=== PATIENT | female | born 1960 | race Caucasian/White ===

== ENCOUNTER 2022-10-29 17:26 | Inpatient (IN) ==
[2022-10-29] MEDS ORDERED: HYDROmorphone INJ 0.5 MG/0.5 ML SYR IV PRN (17:39)
[2022-10-29 17:46] LABS: Basophils # (auto) 0.08 K/uL (0-0.2); Basophils % (auto) 0.8 %; Eosinophils # (auto) 0.41 K/uL (0-0.50); Eosinophils % (auto) 4.3 %; Hematocrit (blood only) 44.4 % (37.0-47.0); Hemoglobin 14.5 g/dl (12.0-16.0); Immature Granulocytes # (auto) 0.03 K/uL (0.01-0.20); Immature Granulocytes % (auto) 0.3 %; Lymphocytes # (auto) 2.43 K/uL (1.2-3.4); Lymphocytes % (auto) 25.3 %; Mean Corpuscular Hemoglobin 28.2 pg (25.0-34.0); Mean Corpuscular Hgb Conc 32.7 g/dL (32.0-36.0); Mean Corpuscular Volume 86.4 fL (80.0-100.0); Monocytes # (auto) 0.62 K/uL (0.11-0.59); Monocytes % (auto) 6.5 %; Neutrophils # (auto) 6.04 K/uL (1.40-6.50); Neutrophils % (auto) 62.8 %; Platelet Count 273 K/uL (130-400); RDW Coefficient of Variation 13.1 % (11.5-14.5); RDW Standard Deviation 40.8 fL (36.4-46.3); Red Blood Count 5.14 M/uL (4.20-5.40); White Blood Count 9.61 K/ul (4.8-10.8)
--- NOTE | 2022-10-29 17:48 | Emergency Department Note ---
Impression & Plan Acute ST elevation myocardial infarction (STEMI) ED Provider Note INFORMANT: Patient and EMS ED PROVIDER(S): Sherwin Schwarz MD CHIEF COMPLAINT: Chest pain PLAN: Disposition: Admitted Condition: Critical Outpatient prescription management: none Referral: None MEDICAL DECISION MAKING: Patient presented acutely with chest pain. ECG had some T wave inversions from the prehospital setting however ECG done here promptly on arrival revealed acute ST elevation in the inferior leads. Heart alert was initiated. Patient was promptly evaluated and treated with IV Dilaudid and oral nitroglycerin. She did receive aspirin and nitroglycerin prehospital. She was feeling somewhat better with this. Her CBC and chemistry panel was unremarkable except for hyperglycemia, however the patient was found to have a markedly elevated troponin. Chest x-ray did show some cardiomegaly and signs of CHF. Patient was evaluated by Dr. Gordon of cardiology. We discussed the case and he agreed with assessment of acute ST elevation PR. He discussed treatment with the patient and she was taken emergently to the catheterization suite for PCI. I refer you to the EMR for further details. [facility]. Case was discussed and diagnostics were reviewed. Team will see the patient after catheterization. Discussed with resource manager After review of the information above and other included data, I feel the patient requires admission and emergent catheterization. Triage Nursing notes reviewed and agree them. Vital Signs: reviewed and remarkable for no significant abnormalities Prior /Outside records reviewed: none Differential diagnosis: Cardiac ischemia, aortic dissection, pulmonary embolism, pneumothorax, pneumonia, pericarditis, myocarditis, esophageal rupture, GERD, cholecystitis, pancreatitis, musculoskeletal, as well as other pathologies. Diagnostics, as interpreted by me: EC Lead ECG performed and revealed NS rhythym at 84, normal Jerome, QRS normal. Inferior ST ELEVATION with lateral TWI. PACs. No PVCs Cardiac Monitoring: Cardiac monitoring ordered by me: The patient was placed on continuous cardiac monitoring and observed. It revealed a normal sinus rhythm at 90 beats per minute without ectopy or evidence of dysrhythmia. Medical decision rules: none Imaging studies: Chest x-ray reveals mild cardiomegaly and signs of CHF. HPI: The patient is a 62 year old female who presents to the Emergency Room with complaints of chest pain. This started over the last week intermittently, got severe today at 1530 and is persisting. The patient also notes the following associated symptoms, SOB, diaphoresis, nausea, back pain, bilateral arm pain. The patient has been given Nitro x 2, zofran and aspirin by EMS for relieving f actors. Current pain is rated as 7/10. Nitro and zofran helped per patient. No prior cardiac history. Pt denies LOC, headache, fevers, chills, visual changes, neck pain, chest pain, breathing difficulties, vomiting, abdominal pain, melena, hematochezia, urinary symptoms, numbness, weakness, lymp hadenopathy, rash, or other complaints. PAST MEDICAL HISTORY: See Below, HTN, DM PAST SURGICAL HISTORY: See Below, SOCIAL HISTORY: See Below, non-smoker HOME MEDICATIONS: See Below ALLERGIES: See Below VITALS: See Below PHYSICAL EXAMINATION: GENERAL: Awake, alert, uncomfortable-appearing, in no distress HENT: Normocephalic, atraumatic. Oropharynx unremarkable. EYES: Normal conjunctiva. Sclera non-icteric. NECK: Inspection normal. Non-tender. Supple. No nuchal rigidity. FROM. No masses. RESPIRATORY: Clear to auscultation. No wheezes. No rales. Normal respiratory effort. CARDIAC: Normal rate. Normal rhythm. No murmurs. No rubs. Extremities warm and well perfused. Pulses equal. No JVD. GI: Soft, non-distended. No tenderness to palpation. No rebound or guarding. No masses. RECTAL: Deferred. MUSCULOSKELETAL: Atraumatic. Chest examination reveals no tenderness. The back is symmetrical on inspection without obvious abnormality. There is no CVA tenderness to palpation. No joint edema. LOWER EXTREMITIES: Calves are equal size bilaterally and non-tender. No edema. Chronic discoloration. NEURO: Normal sensorium. No sensory or motor deficits noted. SKIN: No rash or jaundice noted. CRITICAL CARE: I have personally spent 31 minutes of critical care time in the direct management of this patient. This includes bedside care, interpretation of diagnostic studies, and testing, discussion with consultants, patient, and other required patient management activities. These minutes are in excess of all separately billable procedures. Past Med/Surg History Medical History (Updated 10/29/22 @ 21:59 by SNOW Hood) Benign essential HTN DM II (diabetes mellitus, type II), controlled HLD (hyperlipidemia) Obesity (BMI 30.0-34.9) Surgical History (Updated 10/29/22 @ 18:10 by Liseth Sanchez PA-C) History of kidney surgery Perinephritic mass excised Hx of cataract surgery Hx of hysterectomy Family History (Updated 10/29/22 @ 18:10 by Liseth Sanchez PA-C) Father Heart disease Cancer Mother Diabetes Sister Heart disease Social History (Updated 10/29/22 @ 18:11 by Liseth Sanchez PA-C) Smoking Status: Never smoker Hx Alcohol Use: No Hx Substance Use: No Preferred Language: Guatemalan Communication Ability: Effective Band Presser Required: No Beliefs That Will Affect Care: None Current Living Situation: Family Current Living Situation Comment: patient lives with her mother, and acts as her mother's caregiver Other Information That Helps Us Care for You: No Feels Safe at Home: Yes Safety Concerns: Feels Safe At This Time Assistive Devices: Glasses Allergies Allergies Allergy/AdvReac Type Severity Reaction Status Date / Time ceftriaxone Allergy Severe EDEMA Verified 10/29/22 17:49 FACE/LIPS/TONGUE levofloxacin Allergy Severe OLIVAREZ Verified 10/29/22 17:49 ROHIT REACTION AT END OF THERAPY. amoxicillin Allergy Intermediate eyes swell Verified 10/29/22 17:49 shut clavulanic acid Allergy Intermediate EYES SWELL Verified 10/29/22 17:49 SHUT latex Allergy Intermediate SKIN Verified 10/29/22 17:49 REDDENED, IRRITATION minocycline Allergy Intermediate HEADACHE/EYES Verified 10/29/22 17:49 PUFFY naproxen Allergy Intermediate hives Verified 10/29/22 17:49 pollen extracts Allergy Intermediate SNEEZING, Verified 10/29/22 17:49 CONGESTION Sulfa (Sulfonamide Allergy Intermediate HIVES/SWELL Verified 10/29/22 17:49 Antibiotics) ING metformin Allergy Unknown upset Verified 10/29/22 17:49 stomach, diarrhea nickel Allergy Unknown UNKNOWN Verified 10/29/22 17:49 bupropion [From Wellbutrin] AdvReac Intermediate FELT LIKE Verified 10/29/22 17:49 PASSING OUT simvastatin AdvReac Intermediate Muscle Pain Verified 10/29/22 17:49 erythromycin base AdvReac Unknown unknown Verified 10/29/22 17:49 valsartan AdvReac FATIGUE Verified 10/29/22 17:49 peanuts Allergy Severe EDEMA Uncoded 10/29/22 17:49 FACE/LIPS/TONGUE INFLUENZA VACCINE Allergy Intermediate not Uncoded 10/29/22 17:49 absorbed into system leaves reddened ball sized area corn&corn products AdvReac Severe migraines Uncoded 10/29/22 17:49 Home Meds Home Medications Medication Instructions Recorded Confirmed albuterol sulfate 90 mcg/actuation 2 puff inhalation Q6H PRN Cough 10/29/22 10/29/22 aerosol inhaler ascorbic acid (vitamin C) 500 mg 500 mg PO DAILY 10/29/22 10/29/22 tablet (Vitamin C) aspirin 81 mg tablet,delayed 81 mg PO DAILY 10/29/22 10/29/22 release cholecalciferol (vitamin D3) 125 125 mcg PO DAILY 10/29/22 10/29/22 mcg (5,000 unit) tablet (Vitamin D3) cyclobenzaprine 10 mg tablet 10 mg PO HS PRN MUSCLE SPASMS 10/29/22 10/29/22 dulaglutide 4.5 mg/0.5 mL 4.5 mg subcut WK 10/29/22 10/29/22 subcutaneous pen injector (Trulicity) furosemide 20 mg tablet 20 mg PO QAM 10/29/22 10/29/22 insulin detemir U-100 100 unit/mL 12 unit subcut HS 10/29/22 10/29/22 (3 mL) subcutaneous pen (Levemir FlexPen) loratadine 5 mg-pseudoephedrine ER 1 tab PO QAM 10/29/22 10/29/22 120 mg tablet,extended release,12hr (Claritin-D 12 Hour) losartan 100 mg tablet 100 mg PO QAM 10/29/22 10/29/22 propranolol 60 mg tablet 60 mg PO BID 10/29/22 10/29/22 sertraline 100 mg tablet 100 mg PO QAM 10/29/22 10/29/22 triamcinolone acetonide 0.1 % 1 applic topical BID PRN RASH ON 10/29/22 10/29/22 topical cream ARMS & LEGS--ITCHING Results & Data (ED) Vital Signs Vital Signs - 24 hr 10/29/22 17:37 10/29/22 17:40 10/29/22 17:47 Temperature 36.5 C Temperature Source Oral Pulse Rate 94 H 90 Pulse Rate [Apical] Pulse Rhythm Regular Pulse Rhythm [Apical] Pulse Strength Normal Pulse Strength [Apical] Respiratory Rate 22 Respiratory Effort / Characteristics Non-Labored Spontaneous Respiratory Depth Normal Respiratory Pattern Blood Pressure 137/100 Blood Pressure [Right Arm] Blood Pressure Mean 112 Blood Pressure Mean [Right Arm] Blood Pressure Position Sitting Blood Pressure Position [Right Arm] Pulse Oximetry 90 Oxygen Delivery Method Room Air Room Air Oxygen Flow Rate 2 2 Fraction of Inspired Oxygen Sepsis Recent Fever Within 48 Hours No Sepsis New/Unexplained Change in Mental Status No Sepsis Action Taken by Nursing No Action Required 10/29/22 17:47 10/29/22 18:53 10/29/22 19:08 Temperature Temperature Source Pulse Rate Pulse Rate [Apical] 78 Pulse Rhythm Pulse Rhythm [Apical] Regular Pulse Strength Pulse Strength [Apical] Normal Respiratory Rate 22 14 14 Respiratory Effort / Characteristics Non-Labored Spontaneous Non-Labored Spontaneous Non-Labored Spontaneous Respiratory Depth Normal Normal Normal Respiratory Pattern Regular Blood Pressure Blood Pressure [Right Arm] 131/96 Blood Pressure Mean Blood Pressure Mean [Right Arm] 107 Blood Pressure Position Blood Pressure Position [Right Arm] Sitting Pulse Oximetry 96 98 Oxygen Delivery Method Nasal Cannula Oxygen Flow Rate 2 Fraction of Inspired Oxygen 100 40 Sepsis Recent Fever Within 48 Hours Sepsis New/Unexplained Change in Mental Status Sepsis Action Taken by Nursing Laboratory Data 10/29/22 17:36 10/29/22 17:36 Lab Results 10/29/22 10/29/22 10/29/22 Range/Units 17:36 17:36 17:36 WBC 9.61 (4.8-10.8) K/ul RBC 5.14 (4.20-5.40) M/uL Hgb 14.5 (12.0-16.0) g/dl POC Hgb (12.0-16.0) g/dl Hct 44.4 (37.0-47.0) % POC Hct (37-47) % MCV 86.4 (80.0-100.0) fL MCH 28.2 (25.0-34.0) pg MCHC 32.7 (32.0-36.0) g/dL RDW Std Deviation 40.8 (36.4-46.3) fL RDW Coeff of Moni 13.1 (11.5-14.5) % Plt Count 273 (130-400) K/uL MPV 11.0 (9.4-12.4) fL Immature Gran % (Auto) 0.3 % Neut % (Auto) 62.8 % Lymph % (Auto) 25.3 % [place] % (Auto) 6.5 % Eos % (Auto) 4.3 % Baso % (Auto) 0.8 % Neut # (Auto) 6.04 (1.40-6.50) K/uL Lymph # (Auto) 2.43 (1.2-3.4) K/uL [place] # (Auto) 0.62 H (0.11-0.59) K/uL Eos # (Auto) 0.41 (0-0.50) K/uL Baso # (Auto) 0.08 (0-0.2) K/uL Immature Gran # (Auto) 0.03 (0.01-0.20) K/uL PT 11.2 (9.0-12.0) Seconds INR 1.0 (0.9-1.1) APTT 27.6 (21.0-31.0) Seconds PTT Ratio 1.0 Activ Coag Time Kaolin (94-140) SECONDS POC pH (7.35-7.45) POC pCO2 (35-46) mmHg POC pO2 (80-95) mmHg POC HCO3 (19-24) [place]/L POC Base Excess (-9-1.8) [place]/L POC ABG O2 Sat (90-95) % POC Sodium (135-144) mmol/L Sodium 137 (136-145) mmol/L POC Potassium (3.3-5.0) mmol/L Potassium 4.7 (3.5-5.1) mmol/L POC Chloride (101-112) mmol/L Chloride 102 (98-107) mmol/L Carbon Dioxide 28 (21-32) mmol/L POC Total CO2 (24-31) mmol/L Anion Gap 7 (3-11) POC Anion Gap (16-25) mmol/L POC BUN (7-18) mg/dl BUN 20 (6-23) mg/dl Creatinine 0.93 (0.6-1.2) mg/dl POC Creatinine (0.6-1.3) mg/dl Est Cr Clr Drug Dosing 70.6 ml/min Est GFR ( Amer) 75.8 ml/min Est GFR (Non-Af Amer) 65.4 ml/min BUN/Creatinine Ratio 21.5 H (10-20) Glucose 287 H (70-99(Fasting)) mg/dl POC Glucose (other) (70-99) mg/dl Calcium 8.9 (8.6-10.3) mg/dl POC Ioniz Calcium Sathish (1.12-1.32) mmol/l Magnesium 1.9 (1.7-2.4) mg/dl Total Bilirubin 0.7 (0.2-1.0) mg/dl AST 38 (13-39) U/L ALT 45 (7-52) U/L Alkaline Phosphatase 87 (34-104) U/L Total Creatine Kinase 113 (26-192) U/L Troponin I High Sens 1446.4 H* (0-14) pg/ml B-Natriuretic Peptide (0-100) pg/ml Total Protein 6.9 (6.0-8.3) gm/dl Albumin 4.2 (3.4-5.0) gm/dl Globulin 2.7 (2.5-4.0) gm/dl Albumin/Globulin Ratio 1.6 (0.9-2) Lipase 52 (11-82) U/L TSH (0.300-4.500) uIu/ml SARS-CoV-2, RNA, NAAT (NEGATIVE) 10/29/22 10/29/22 10/29/22 Range/Units 17:36 17:40 17:47 WBC (4.8-10.8) K/ul RBC (4.20-5.40) M/uL Hgb (12.0-16.0) g/dl POC Hgb (12.0-16.0) g/dl Hct (37.0-47.0) % POC Hct (37-47) % MCV (80.0-100.0) fL MCH (25.0-34.0) pg MCHC (32.0-36.0) g/dL RDW Std Deviation (36.4-46.3) fL RDW Coeff of Moni (11.5-14.5) % Plt Count (130-400) K/uL MPV (9.4-12.4) fL Immature Gran % (Auto) % Neut % (Auto) % Lymph % (Auto) % [place] % (Auto) % Eos % (Auto) % Baso % (Auto) % Neut # (Auto) (1.40-6.50) K/uL Lymph # (Auto) (1.2-3.4) K/uL [place] # (Auto) (0.11-0.59) K/uL Eos # (Auto) (0-0.50) K/uL Baso # (Auto) (0-0.2) K/uL Immature Gran # (Auto) (0.01-0.20) K/uL PT (9.0-12.0) Seconds INR (0.9-1.1) APTT (21.0-31.0) Seconds PTT Ratio Activ Coag Time Kaolin (94-140) SECONDS POC pH (7.35-7.45) POC pCO2 (35-46) mmHg POC pO2 (80-95) mmHg POC HCO3 (19-24) [place]ul[place]/L POC Base Excess (-9-1.8) [place]/L POC ABG O2 Sat (90-95) % POC Sodium (135-144) mmol/L Sodium (136-145) mmol/L POC Potassium (3.3-5.0) mmol/L Potassium (3.5-5.1) mmol/L POC Chloride (101-112) mmol/L Chloride (98-107) mmol/L Carbon Dioxide (21-32) mmol/L POC Total CO2 (24-31) mmol/L Anion Gap (3-11) POC Anion Gap (16-25) mmol/L POC BUN (7-18) mg/dl BUN (6-23) mg/dl Creatinine (0.6-1.2) mg/dl POC Creatinine (0.6-1.3) mg/dl Est Cr Clr Drug Dosing ml/min Est GFR ( Amer) ml/min Est GFR (Non-Af Amer) ml/min BUN/Creatinine Ratio (10-20) Glucose (70-99(Fasting)) mg/dl POC Glucose (other) (70-99) mg/dl Calcium (8.6-10.3) mg/dl POC Ioniz Calcium Sathish (1.12-1.32) mmol/l Magnesium (1.7-2.4) mg/dl Total Bilirubin (0.2-1.0) mg/dl AST (13-39) U/L ALT (7-52) U/L Alkaline Phosphatase (34-104) U/L Total Creatine Kinase (26-192) U/L Troponin I High Sens (0-14) pg/ml B-Natriuretic Peptide 1195 H (0-100) pg/ml Total Protein (6.0-8.3) gm/dl Albumin (3.4-5.0) gm/dl Globulin (2.5-4.0) gm/dl Albumin/Globulin Ratio (0.9-2) Lipase (11-82) U/L TSH 3.155 (0.300-4.500) uIu/ml SARS-CoV-2, RNA, NAAT NEGATIVE (NEGATIVE) 10/29/22 10/29/22 10/29/22 Range/Units 17:53 18:33 18:34 WBC (4.8-10.8) K/ul RBC (4.20-5.40) M/uL Hgb (12.0-16.0) g/dl POC Hgb 15.0 13.9 (12.0-16.0) g/dl Hct (37.0-47.0) % POC Hct 44 41 (37-47) % MCV (80.0-100.0) fL MCH (25.0-34.0) pg MCHC (32.0-36.0) g/dL RDW Std Deviation (36.4-46.3) fL RDW Coeff of Moni (11.5-14.5) % Plt Count (130-400) K/uL MPV (9.4-12.4) fL Immature Gran % (Auto) % Neut % (Auto) % Lymph % (Auto) % [place] % (Auto) % Eos % (Auto) % Baso % (Auto) % Neut # (Auto) (1.40-6.50) K/uL Lymph # (Auto) (1.2-3.4) K/uL [place] # (Auto) (0.11-0.59) K/uL Eos # (Auto) (0-0.50) K/uL Baso # (Auto) (0-0.2) K/uL Immature Gran # (Auto) (0.01-0.20) K/uL PT (9.0-12.0) Seconds INR (0.9-1.1) APTT (21.0-31.0) Seconds PTT Ratio Activ Coag Time Kaolin 257 H (94-140) SECONDS POC pH 7.15 L* (7.35-7.45) POC pCO2 73 H (35-46) mmHg POC pO2 99 H (80-95) mmHg POC HCO3 25 H (19-24) [place]ul[place]/L POC Base Excess -4.0 (-9-1.8) [place]/L POC ABG O2 Sat 95.0 (90-95) % POC Sodium 138 128 L (135-144) mmol/L Sodium (136-145) mmol/L POC Potassium 4.4 4.1 (3.3-5.0) mmol/L Potassium (3.5-5.1) mmol/L POC Chloride 103 (101-112) mmol/L Chloride (98-107) mmol/L Carbon Dioxide (21-32) mmol/L POC Total CO2 23 L 27 (24-31) mmol/L Anion Gap (3-11) POC Anion Gap 18.0 (16-25) mmol/L POC BUN 20 H (7-18) mg/dl BUN (6-23) mg/dl Creatinine (0.6-1.2) mg/dl POC Creatinine 0.9 (0.6-1.3) mg/dl Est Cr Clr Drug Dosing ml/min Est GFR ( Amer) ml/min Est GFR (Non-Af Amer) ml/min BUN/Creatinine Ratio (10-20) Glucose (70-99(Fasting)) mg/dl POC Glucose (other) 286 H (70-99) mg/dl Calcium (8.6-10.3) mg/dl POC Ioniz Calcium Sathish 1.08 L (1.12-1.32) mmol/l Magnesium (1.7-2.4) mg/dl Total Bilirubin (0.2-1.0) mg/dl AST (13-39) U/L ALT (7-52) U/L Alkaline Phosphatase (34-104) U/L Total Creatine Kinase (26-192) U/L Troponin I High Sens (0-14) pg/ml B-Natriuretic Peptide (0-100) pg/ml Total Protein (6.0-8.3) gm/dl Albumin (3.4-5.0) gm/dl Globulin (2.5-4.0) gm/dl Albumin/Globulin Ratio (0.9-2) Lipase (11-82) U/L TSH (0.300-4.500) uIu/ml SARS-CoV-2, RNA, NAAT (NEGATIVE) 10/29/22 10/29/22 Range/Units 19:03 19:05 WBC (4.8-10.8) K/ul RBC (4.20-5.40) M/uL Hgb (12.0-16.0) g/dl POC Hgb 15.0 13.9 (12.0-16.0) g/dl Hct (37.0-47.0) % POC Hct 44 41 (37-47) % MCV (80.0-100.0) fL MCH (25.0-34.0) pg MCHC (32.0-36.0) g/dL RDW Std Deviation (36.4-46.3) fL RDW Coeff of Moni (11.5-14.5) % Plt Count (130-400) K/uL MPV (9.4-12.4) fL Immature Gran % (Auto) % Neut % (Auto) % Lymph % (Auto) % [place] % (Auto) % Eos % (Auto) % Baso % (Auto) % Neut # (Auto) (1.40-6.50) K/uL Lymph # (Auto) (1.2-3.4) K/uL [place] # (Auto) (0.11-0.59) K/uL Eos # (Auto) (0-0.50) K/uL Baso # (Auto) (0-0.2) K/uL Immature Gran # (Auto) (0.01-0.20) K/uL PT (9.0-12.0) Seconds INR (0.9-1.1) APTT (21.0-31.0) Seconds PTT Ratio Activ Coag Time Kaolin (94-140) SECONDS POC pH 7.26 L 7.29 L (7.35-7.45) POC pCO2 65 H 55 H (35-46) mmHg POC pO2 38 L 176 H (80-95) mmHg POC HCO3 29 H 27 H (19-24) [place]/L POC Base Excess 2.0 H 0.0 (-9-1.8) [place]/L POC ABG O2 Sat 61.0 L 99.0 H (90-95) % POC Sodium 138 140 (135-144) mmol/L Sodium (136-145) mmol/L POC Potassium 4.2 3.8 (3.3-5.0) mmol/L Potassium (3.5-5.1) mmol/L POC Chloride (101-112) mmol/L Chloride (98-107) mmol/L Carbon Dioxide (21-32) mmol/L POC Total CO2 31 28 (24-31) mmol/L Anion Gap (3-11) POC Anion Gap (16-25) mmol/L POC BUN (7-18) mg/dl BUN (6-23) mg/dl Creatinine (0.6-1.2) mg/dl POC Creatinine (0.6-1.3) mg/dl Est Cr Clr Drug Dosing ml/min Est GFR ( Amer) ml/min Est GFR (Non-Af Amer) ml/min BUN/Creatinine Ratio (10-20) Glucose (70-99(Fasting)) mg/dl POC Glucose (other) (70-99) mg/dl Calcium (8.6-10.3) mg/dl POC Ioniz Calcium Sathish (1.12-1.32) mmol/l Magnesium (1.7-2.4) mg/dl Total Bilirubin (0.2-1.0) mg/dl AST (13-39) U/L ALT (7-52) U/L Alkaline Phosphatase (34-104) U/L Total Creatine Kinase (26-192) U/L Troponin I High Sens (0-14) pg/ml B-Natriuretic Peptide (0-100) pg/ml Total Protein (6.0-8.3) gm/dl Albumin (3.4-5.0) gm/dl Globulin (2.5-4.0) gm/dl Albumin/Globulin Ratio (0.9-2) Lipase (11-82) U/L TSH (0.300-4.500) uIu/ml SARS-CoV-2, RNA, NAAT (NEGATIVE) Administered Medications Hydromorphone HCl (Hydromorphone Inj 0.5 Mg/0.5 Ml Syr) 0.25 mg IV Q10M PRN PRN Reason: Pain Stop: 11/12/22 17:38 Last Admin: 10/29/22 17:44 Dose: 0.25 mg Documented By: PRASANNA Insulin Aspart (Insulin Aspart Per Unit Charge) 0 units SC ACHS [facility] Stop: 11/28/22 20:59 Last Admin: 10/29/22 21:39 Dose: 3 units Documented By: PADMA Co-signed By: LEONA Insulin Glargine (Lantus Per Unit Charge) 12 units SQ HS [facility] Stop: 11/28/22 20:59 Last Admin: 10/29/22 21:39 Dose: 12 units Documented By: PADMA Co-signed By: LEONA Metoprolol Tartrate (Metoprolol Tartrate 25 Mg Tab) 12.5 mg PO BID [facility] Stop: 11/28/22 20:59 Last Admin: 10/29/22 21:49 Dose: 12.5 mg Documented By: PADMA Discontinued Medications Fentanyl Citrate (Fentanyl Citrate Pf 100 Mcg/2 Ml Vial) Confirm Administered Dose 100 mcg .ROUTE .STK-MED ONE Stop: 10/29/22 17:54 Last Increment: 10/29/22 18:57 Dose: 25 mcg Documented By: DANILO Furosemide (Furosemide 40 Mg/4 Ml Vial) Confirm Administered Dose 40 mg IV .STK- MED ONE Stop: 10/29/22 18:22 Last Admin: 10/29/22 18:57 Dose: 40 mg Documented By: DANILO Heparin Sodium (Porcine) (Heparin (Porcine) 1000 Unit/Ml 10 Ml (Aut[employer] Use Only)) Confirm Administered Dose 10,000 units .ROUTE .STK-MED ONE Stop: 10/29/22 17:54 Last Admin: 10/29/22 18:56 Dose: 8,000 units Documented By: DANILO Heparin Sodium/Sodium Chloride (Heparin In Nss Infusion 1000 Unit/500 Ml (2 U/Ml) Bag) Confirm Administered Dose 4,000 units IV .STK-MED ONE Stop: 10/29/22 17:54 Last Admin: 10/29/22 20:26 Dose: Not Given Documented By: PADMA Midazolam HCl (Midazolam Hcl 1 Mg/Ml 2ml Vial) Confirm Administered Dose 2 mg .ROUTE .STK-MED ONE Stop: 10/29/22 17:54 Last Increment: 10/29/22 18:57 Dose: 1 mg Documented By: DANILO Nicardipine HCl (Nicardipine Hcl Inj 2.5 Mg/Ml 10 Ml Amp) Confirm Administered Dose 25 mg .ROUTE .STK-MED ONE Stop: 10/29/22 17:54 Last Admin: 10/29/22 20:27 Dose: Not Given Documented By: DLP Nitroglycerin (Nitroglycerin Sl 0.4 Mg/Tab Tab) 0.4 mg SL NOW STA Stop: 10/29/22 17:50 Last Admin: 10/29/22 20:25 Dose: Not Given Documented By: DLP Nitroglycerin (Nitroglycerin 60 Sprays/4.9 Gm [place]) Confirm Administered Dose 60 sprays .ROUTE .STK-MED ONE Stop: 10/29/22 17:51 Last Admin: 10/29/22 20:25 Dose: Not Given Documented By: DLP Nitroglycerin/Dextrose (Nitroglycerin/D5w 100mcg/Ml 20ml Syr) Confirm Administered Dose 2,000 mcg .ROUTE .STK-MED ONE Stop: 10/29/22 17:55 Last Admin: 10/29/22 20:27 Dose: Not Given Documented By: DLP Ticagrelor (Ticagrelor 90 Mg Tab) Confirm Administered Dose 180 mg .ROUTE .STK- MED ONE Stop: 10/29/22 18:09 Last Admin: 10/29/22 18:56 Dose: 180 mg Documented By: K Imaging Data Radiologist's Impression: Chest X-Ray 10/29/22 17:34 XR chest 1V portable HISTORY: 62 years-old Female Chest pain, nonspecific COMPARISON: Chest CT 08/22/2020 TECHNIQUE: AP view of the chest FINDINGS: Cardiac silhouette is enlarged. Pulmonary vascular congestion with interstitial coarsening. No pneumothorax. Trace pleural effusions with mild bibasilar densities. Bones appear grossly intact. IMPRESSION: 1. Cardiomegaly with pulmonary vascular congestion and interstitial coarsening suggestive of pulmonary edema. 2. Trace pleural effusions with mild bibasilar densities, likely atelectatic. ACT 112: Negative or not required by law. The above report was generated using voice recognition software. It may contain grammatical, syntax or spelling errors. Electronically signed by: Antione Rubin M.D. 10/29/2022 6:05 PM Discharge Plan Visit Data Chief Complaint: Chest Pain Stated Complaint: CHEST PAIN, PALE, DIAPHORETIC ED Provider: Sherwin Schwarz Discharge Problem: Acute ST elevation myocardial infarction (STEMI)
[2022-10-29] MEDS ORDERED: NITROGLYCERIN SL 0.4 MG/TAB TAB SL STA (17:49)
[2022-10-29] MEDS ORDERED: NITROGLYCERIN 60 SPRAYS/4.9 GM SPRAY ONE (17:50)
[2022-10-29] MEDS ORDERED: MIDAZOLAM HCL 1 MG/ML 2ML VIAL ONE (17:53)
[2022-10-29] MEDS ORDERED: HEPARIN (PORCINE) 1000 UNIT/ML 10 ML (CATH LAB USE ONLY) ONE (17:53)
[2022-10-29] MEDS ORDERED: fentaNYL citrate PF 100 MCG/2 ML VIAL ONE (17:53)
[2022-10-29] MEDS ORDERED: niCARdipine HCL INJ 2.5 MG/ML 10 ML AMP ONE (17:53)
[2022-10-29] MEDS ORDERED: NITROGLYCERIN/D5W 100MCG/ML 20ML SYR ONE (17:54)
[2022-10-29 17:58] LABS: Partial Thromboplastin Time 27.6 Seconds (21.0-31.0); Prothrombin Time 11.2 Seconds (9.0-12.0)
[2022-10-29 18:06] LABS: iSTAT Creatinine 0.9 mg/dl (0.6-1.3); iSTAT Ionized Calcium 1.08 mmol/l (1.12-1.32); iSTAT Potassium 4.4 mmol/L (3.3-5.0)
--- NOTE | 2022-10-29 18:07 | XRay Report ---
XR chest 1V portable HISTORY: 62 years-old Female Chest pain, nonspecific COMPARISON: Chest CT 08/22/2020 TECHNIQUE: AP view of the chest FINDINGS: Cardiac silhouette is enlarged. Pulmonary vascular congestion with interstitial coarsening. No pneumo thorax. Trace pleural effusions with mild bibasilar densities. Bones appear grossly intact. IMPRESSION: 1. Cardiomegaly with pulmonary vascular congestion and interstitial coarsening suggestive of pulmonar y edema. 2. Trace pleural effusions with mild bibasilar densities, likely atelectatic. ACT 112: Negative or not required by law. The above report was generated using voice recognition software. It may contain grammatical, syntax o r spelling errors. Electronically signed by: Antione Rubin M.D. 10/29/2022 6:05 PM
[2022-10-29 18:08] LABS: Albumin Globulin Ratio 1.6 (0.9-2); Albumin Level 4.2 gm/dl (3.4-5.0); BUN Creatinine Ratio 21.5 (10-20); Bilirubin,Total 0.7 mg/dl (0.2-1.0); Calcium 8.9 mg/dl (8.6-10.3); Creatinine Clr Calc Pharmacy 70.6 ml/min; Est GFR (African American) 75.8 ml/min; Est GFR (Non-African American) 65.4 ml/min; Globulin 2.7 gm/dl (2.5-4.0); Magnesium 1.9 mg/dl (1.7-2.4); Potassium 4.7 mmol/L (3.5-5.1); Total Protein 6.9 gm/dl (6.0-8.3)
[2022-10-29] MEDS ORDERED: TICAGRELOR 90 MG TAB ONE (18:08)
--- NOTE | 2022-10-29 18:08 | Pre Anesthesia Assessment ---
Date of Service October 29, 2022 Pre Sedation Assessment Vital Signs Temp Pulse Pulse Resp BP BP Pulse Ox 10/29/22 17:47 78 22 131/96 96 10/29/22 17:47 10/29/22 17:40 90 10/29/22 17:37 97.7 F 94 H 22 137/100 90 O2 Del Method O2 Flow Rate 10/29/22 17:47 Nasal Cannula 2 10/29/22 17:47 Room Air 2 10/29/22 17:40 10/29/22 17:37 Room Air 2 Cardiovascular RRR, no murmur, no edema Respiratory normal respiratory effort, lungs clear to auscultation Pre-Sedation Airway Assessment Smoking Status: Never smoker Hx Sleep Apnea: No Hx Difficult Intubation: No Short, Thick Neck: No Thyromental Distance: > or= 3.5 Finger Breadths Oral Cavity: + WNL Mallampati Class: III ASA: ASA4 Procedure Planning Contraindications for Sedation: none Current Medications Reviewed: Yes Notes The planned sedation has been discussed with the patient. Informed Consent was obtained. I have identified the patient, determined the appropriateness of sedation and have assessed the patient immediately prior to the procedure. All medicine(s) and interventions are by my order.
--- NOTE | 2022-10-29 18:12 | Cardiology Consultation ---
Date of Consultation October 29, 2022 Assessment & Plan (1) Acute ST elevation myocardial infarction (STEMI): Plan Presentation consistent with inferior STEMI and recommend proceeding with emergent cardiac catheterization and likely primary PCI. No apparent contraindications to procedure. Discussed risks, benefits, alternatives of procedure with patient and they are willing to proceed. Further recommendations pending findings of coronary angiography. History of Present Illness History of Present Illness 62-year-old woman here with acute chest pain and ECG concerning for acute MA. Patient seen emergently in the ED after heart alert activated on arrival. No significant prior cardiac history. [facility], Dr. Correa for lower extremity edema. Had a dobutamine stress test 11/2016 negative for ischemia, resting EF 55%, DD 1, mild MR. Other medical issues include type 2 diabetes on insulin/GLP1, hypertension, lumbar degenerative disc disease, depression, class I obesity and statin intolerance. Reports intermittent chest pain, shortness of breath, cough for the last several days. Also noted increased LE edema. Today was walking to work around 3:30 PM, approximately 2 hours prior to arrival when developed severe substernal chest pain with associated diaphoresis, nausea. Pain at its worst 10 out of 10. Given nitroglycerin, morphine, Dilaudid in ED with pain down to 6 out of 10. Hypertensive on arrival. Mildly hypoxic with 02 sat 90% on room air. CXR on with pulmonary edema. ECG in ambulance showed sinus rhythm with subtle inferior ST changes. ECG on ED showed sinus tachycardia now with inferior ST elevations. Allergies Allergy/AdvReac Type Severity Reaction Status Date / Time ceftriaxone Allergy Severe EDEMA Verified 10/29/22 17:49 FACE/LIPS/TONGUE levofloxacin Allergy Severe OLIVAREZ Verified 10/29/22 17:49 ROHIT REACTION AT END OF THERAPY. amoxicillin Allergy Intermediate eyes swell Verified 10/29/22 17:49 shut clavulanic acid Allergy Intermediate EYES SWELL Verified 10/29/22 17:49 SHUT latex Allergy Intermediate SKIN Verified 10/29/22 17:49 REDDENED, IRRITATION minocycline Allergy Intermediate HEADACHE/EYES Verified 10/29/22 17:49 PUFFY naproxen Allergy Intermediate hives Verified 10/29/22 17:49 pollen extracts Allergy Intermediate SNEEZING, Verified 10/29/22 17:49 CONGESTION Sulfa (Sulfonamide Allergy Intermediate HIVES/SWELL Verified 10/29/22 17:49 Antibiotics) ING metformin Allergy Unknown upset Verified 10/29/22 17:49 stomach, diarrhea nickel Allergy Unknown UNKNOWN Verified 10/29/22 17:49 bupropion [From Wellbutrin] AdvReac Intermediate FELT LIKE Verified 10/29/22 17:49 PASSING OUT simvastatin AdvReac Intermediate Muscle Pain Verified 10/29/22 17:49 erythromycin base AdvReac Unknown unknown Verified 10/29/22 17:49 valsartan AdvReac FATIGUE Verified 10/29/22 17:49 peanuts Allergy Severe EDEMA Uncoded 10/29/22 17:49 FACE/LIPS/TONGUE INFLUENZA VACCINE Allergy Intermediate not Uncoded 10/29/22 17:49 absorbed into system leaves reddened ball sized area corn&corn products AdvReac Severe migraines Uncoded 10/29/22 17:49 Home Medications Medication Instructions Recorded Confirmed Type albuterol sulfate 90 mcg/actuation 2 puff inhalation Q6H PRN Cough 10/29/22 10/29/22 History aerosol inhaler ascorbic acid (vitamin C) 500 mg 500 mg PO DAILY 10/29/22 10/29/22 History tablet (Vitamin C) aspirin 81 mg tablet,delayed 81 mg PO DAILY 10/29/22 10/29/22 History release cholecalciferol (vitamin D3) 125 125 mcg PO DAILY 10/29/22 10/29/22 History mcg (5,000 unit) tablet (Vitamin D3) cyclobenzaprine 10 mg tablet 10 mg PO HS PRN MUSCLE SPASMS 10/29/22 10/29/22 History dulaglutide 4.5 mg/0.5 mL 4.5 mg subcut WK 10/29/22 10/29/22 History subcutaneous pen injector (Trulicity) furosemide 20 mg tablet 20 mg PO QAM 10/29/22 10/29/22 History insulin detemir U-100 100 unit/mL 12 unit subcut HS 10/29/22 10/29/22 History (3 mL) subcutaneous pen (Levemir FlexPen) loratadine 5 mg-pseudoephedrine ER 1 tab PO QAM 10/29/22 10/29/22 History 120 mg tablet,extended release,12hr (Claritin-D 12 Hour) losartan 100 mg tablet 100 mg PO QAM 10/29/22 10/29/22 History propranolol 60 mg tablet 60 mg PO BID 10/29/22 10/29/22 History sertraline 100 mg tablet 100 mg PO QAM 10/29/22 10/29/22 History triamcinolone acetonide 0.1 % 1 applic topical BID PRN RASH ON 10/29/22 10/29/22 History topical cream ARMS & LEGS--ITCHING Patient History Medical History (Updated 10/29/22 @ 18:10 by Liseth Sanchez PA-C) Benign essential HTN DM II (diabetes mellitus, type II), controlled HLD (hyperlipidemia) Obesity (BMI 30.0-34.9) Surgical History (Updated 10/29/22 @ 18:10 by Liseth Sanchez PA-C) History of kidney surgery Perinephritic mass excised Hx of cataract surgery Hx of hysterectomy Family History (Updated 10/29/22 @ 18:10 by Liseth Sanchez PA-C) Father Heart disease Cancer Mother Diabetes Sister Heart disease Social History (Updated 10/29/22 @ 18:11 by Liseth Sanchez PA-C) Smoking Status: Former smoker Feels Safe at Home: Yes Review of Systems Review of Systems: Not completed in setting of emergent situation Physical Exam Physical Exam: General: Uncomfortable HEENT: Sclerae anicteric Lungs: Crackles at bases Cardiac: Regular rate and rhythm, no murmurs. Vascular: 2+ radial Abdomen: Soft, nontender Extremities: Well perfused, trace to 1+ bilateral extremity edema with chronic venous stasis changes Neuro: Nonfocal Psych: Alert orient x3, normal affect and mood Results & Data Vital Signs (Past 12 Hours) Vital Signs Temp Pulse Pulse Resp BP BP Pulse Ox 10/29/22 17:47 78 22 131/96 96 10/29/22 17:47 10/29/22 17:40 90 10/29/22 17:37 97.7 F 94 H 22 137/100 90 O2 Del Method O2 Flow Rate 10/29/22 17:47 Nasal Cannula 2 10/29/22 17:47 Room Air 2 10/29/22 17:40 10/29/22 17:37 Room Air 2 PG Care Time/CCT Total # of Minutes Spent Total Time Spent with Patient: Total time spent is greater than 50% in coordination of care (as documented) at patient's floor/unit and/or counseling patient: Coding Level of Care Code 51997 OFFICE CONSULT LVL Diagnoses Acute ST elevation myocardial infarction (STEMI) I21.3
[2022-10-29 18:17] LABS: Troponin I High Sensitivity 1446.4 pg/ml (0-14)
[2022-10-29] MEDS ORDERED: FUROSEMIDE 40 MG/4 ML VIAL IV ONE ×2 (18:21→19:05)
[2022-10-29] MEDS ORDERED: ATROPINE SULFATE 0.1 MG/ML 10ML SYR IV ONE (18:26)
[2022-10-29] MEDS ORDERED: ONDANSETRON INJ 2 MG/ML 2 ML VIAL ONE (18:27)
[2022-10-29] MEDS ORDERED: LIDOCAINE 1% LOCAL 20 ML VIAL ONE (18:45)
[2022-10-29 19:19] LABS: iSTAT Arterial Blood Gas HCO3 25 meg/L (19-24); iSTAT Arterial Blood Gas pCO2 73 mmHg (35-46); iSTAT Arterial Blood Gas pH 7.15 (7.35-7.45); iSTAT Arterial Blood Gas pO2 99 mmHg (80-95); iSTAT Carbon Dioxide 27 mmol/L (24-31); iSTAT Hematocrit 41 % (37-47); iSTAT Hemoglobin 13.9 g/dl (12.0-16.0); iSTAT Potassium 4.1 mmol/L (3.3-5.0); iSTAT Sodium 128 mmol/L (135-144)
[2022-10-29 19:19] LABS: iSTAT Arterial Blood Gas HCO3 27 meg/L (19-24); iSTAT Arterial Blood Gas pCO2 55 mmHg (35-46); iSTAT Arterial Blood Gas pH 7.29 (7.35-7.45); iSTAT Arterial Blood Gas pO2 176 mmHg (80-95); iSTAT Carbon Dioxide 28 mmol/L (24-31); iSTAT Hematocrit 41 % (37-47); iSTAT Hemoglobin 13.9 g/dl (12.0-16.0); iSTAT Potassium 3.8 mmol/L (3.3-5.0); iSTAT Sodium 140 mmol/L (135-144)
[2022-10-29 19:20] LABS: iSTAT Arterial Blood Gas HCO3 29 meg/L (19-24); iSTAT Arterial Blood Gas pCO2 65 mmHg (35-46); iSTAT Arterial Blood Gas pH 7.26 (7.35-7.45); iSTAT Arterial Blood Gas pO2 38 mmHg (80-95); iSTAT Carbon Dioxide 31 mmol/L (24-31); iSTAT Hematocrit 44 % (37-47); iSTAT Potassium 4.2 mmol/L (3.3-5.0); iSTAT Sodium 138 mmol/L (135-144)
--- NOTE | 2022-10-29 19:30 | Post Anesthesia Assessment ---
Date of Service October 29, 2022 Post Sedation Assessment Vital Signs Temp Pulse Pulse Resp BP BP Pulse Ox 10/29/22 18:53 14 10/29/22 17:47 78 22 131/96 96 10/29/22 17:47 10/29/22 17:40 90 10/29/22 17:37 97.7 F 94 H 22 137/100 90 O2 Del Method O2 Flow Rate FiO2 10/29/22 18:53 100 10/29/22 17:47 Nasal Cannula 2 10/29/22 17:47 Room Air 2 10/29/22 17:40 10/29/22 17:37 Room Air 2 Recovery Score Activity: Moves 4 extremities Respiration: Deep Breath/Cough Circulation: +/-20% PreAnes Value Consciousness: Fully Awake Oxygen Saturation: O2 needed for >90% Discharge Sedation Level of Care: Fast Track Phase II Post Sedation Plan On clinical assessment, the patient appears to have tolerated the sedation without complications. Patient is recovering as anticipated. Patient will continue to be monitored by nursing and may be discharged when sedation discharge criteria are met per below protocol. Upon Completions of procedure up to 15 minutes continue every 5 minute vital signs and the P.A.R. score; then discharge to a Phase I or Fast Track to Phase II per the following guidelines: * Discharge Patient to appropriate Phase II area if PAR is 8 or greater or return to pre- procedure baseline. The post - procedure orders will be as directed. * If PAR score is less than 8 or not return to pre-procedure baseline then jaquan ent will follow Phase I monitoring till PAR is reached for Phase II. The Phase I may be done in procedure room or may call to secure a Phase I area. * If naloxone or flumazenil are used for reversal, hold in Phase I for continued monitoring from when last reversal dose was given for a minimum of 60 minutes or longer pending the nurse and/or physician discretion of patient condition before discharge to Phase II. Please call the Sedation Physician to re-evaluate and complete post-note for discharge to Phase II area. Do NOT discharge from procedure sedation or Phase 1 until post- sedation e valuation note is complete by procedure /sedation MD Sedation Discharge Instructions to be given to the patient at discharge to home.
[2022-10-29] MEDS ORDERED: ONDANSETRON INJ 2 MG/ML 2 ML VIAL IV PRN ×2 (19:35→20:24)
[2022-10-29] MEDS ORDERED: ACETAMINOPHEN 325 MG TAB PO PRN ×2 (19:35→20:24)
--- NOTE | 2022-10-29 19:58 | Cardiac Catheterization ---
[facility] Data: Trailer Technician Cardiac Status Clinical evaluation leading to the procedure CAD Presenation: STEMI Anginal Classification: CCS IV Heart Failure: NYHA Class: CCS IV Diagnostic Physicians Name: Kiko Gordon MD Closure Device Recommendations: PCI without planned CABG Cardiac Cath Procedure Full Procedure Date October 29, 2022 Pre-Procedure Diagnosis Pre-Procedure Diagnosis: STEMI AUC Score AUC Score: 9 Post-Procedure Diagnosis Post-Procedure Diagnosis: Severe CAD, Successful PCI, Decreased LV Systolic Function and Elevated Intracardiac Pressures Procedure(s) Performed Procedure(s) Performed: Coronary Angiography, Left Heart Cath, Right Heart Cath, Drug Eluting Stent and Ultrasound Guided Vascular Access Personnel Records Clerk Kiko Gordon MD Senior Asp Net Developer(s) Suraj Estimated Blood Loss Estimated Blood Loss: 20 Medication(s) Medication(s): Fentanyl, Heparin, Lidocaine 1%, Nicardipine, Nitroglycerin and Versed Medication(s): Ticagrelor, Furosemide Summary of Findings Indication: STEMI/Heart Alert Access: 6 Fr right radial artery, 7 Fr right common femoral vein Catheters: [place], JR4 guide, 7 Fr [place] Findings: LM -normal caliber, no significant disease LAD -100% ostial occlusion. LAD fills partially in the midsegment via right to right and [id number] collaterals. Circumflex -medium caliber vessel, 20 to 30% mid segment disease, small distal circumflex with 70% stenosis prior to left PLB. 100% ostial small diffusely diseased OM 3 fills retrograde via left to left collaterals RCA -dominant, medium caliber, 20% proximal, 98% acute distal stenosis with CANDELARIO I-II flow in PDA and RPLB. RPDA 70% ostial, diffuse mid segment disease up to 70%. Very small RPLB 80% ostial. LVEDP -51 pre-PCI -- PCI -- Antithrombotic therapy: Heparin, ticagrelor Procedure: RCA cannulated with JR4 guide BMW wire passed across lesion into distal vessel Distal RCA lesion predilated with 2.0 compliant balloon Dilated lesion stented with 2.25 x 22 mm Elan drug-eluting stent placed from distal RCA into PDA Stent post-dilated with 2.75 noncompliant balloon IC vasodilators administered for spasm Post procedure CANDELARIO 3 flow, stent well expanded with minimal residual stenosis and no apparent cardiac complications. Residual diffuse mid PDA disease. PCI course Remained hemodynamically and electrically stable throughout Increasingly hypoxic, somnolent with hypercarbic respiratory failure initial ABG Given a total of 80 of IV Lasix and placed on BiPAP Improved respiratory acidosis, mental status with initial therapy Post procedure right heart catheterization RA 25 RV 64/20 PA 59/41 (49) PAWP 40 PaSat 61% AoSat 96% Lanre CO/CI 3.9/2.0 Bedside echo post procedureEF 20 to 25% with severe hypokinesis to akinesis throughout except lateral wall Arterial Closure: TR band Summary: 1. Inferior STEMI/acute subtotal distal RCA occlusion 2. Severe multivessel nonculprit CAD -100% ostial LAD chronic total occlusion. Fills partially via right to left and left to left collaterals 70% small distal circumflex. 100% occluded small OM 3 fills via left to left collaterals 70% diffuse residual mid RPDA 3. Acute heart failure with elevated left and right-sided filling pressures 4. Severe pulmonary hypertension (postcapillary) 5. Borderline cardiac output 6. Successful PCI of distal RCA into PDA with single JESSENIA (2.25 x 22 mm [place]; postdilated with 2.75 NC) Recommendations: Admit to ICU for continued monitoring Loaded with ticagrelor 180 mg in Trailer Technician Continue dual-antiplatelet therapy for at least 1 year. Trend troponins until peak, Check formal Echo in the morning Continue IV diuresis Gentle initiation of beta-jone, ARB as BP allows Previously statin intolerant Long-term with severe LV dysfunction, diabetes and multivessel disease will need CABG evaluation. Discussed with Dr. Hernández at [facility]. Ideally would be done as an outpatient when heart failure resolved and removed from [place]. Hemodynamics Rest Ao:: 140/100/123 Final Ao: 134/96/114 LV: 128/51 Recommendations Recommendations: PCI without planned CABG Specimens Specimens: None Radiation Exposure (mGy) 2172 Contrast (mls) 55 Anesthesia Moderate [id number] Procedural Complication(s) None Disposition ICU I attest to the content of the Intraoperative Record and any orders documented therein. Any exceptions are noted below. [facility] [place] Card Cath Procedure Codes Cardiac Catheterization Procedure 1: Cardiovascular Cath Procedures: 64373 Coronaries & LHC (+/-LV) & RHC Therapeutic Services & Ancillary Procedure 1: Cardiovascular Tx and Anc Procedures: 27028 Ultrasonic Guidance Vascular Access Moderate Sedation Procedure 1: Sedation/Anesthesia: 61248 Mod Sedation by the same physician;Init15 Min Child Age 5 & Up Procedure 2: Sedation/Anesthesia: 42047 Mod Sedation by the same physician; Ea [id number] Minutes Stenting Procedure 1: Cardiovascular Stent Procedures: 16739 Perc transluminal revascularization of acute sub/total occl, aMI PG Care Time/CCT Total # of Minutes Spent Total Time Spent with Patient: Total time spent is greater than 50% in coordination of care (as documented) at patient's floor/unit and/or counseling patient:
[2022-10-29] MEDS ORDERED: DEXTROSE 50% 50 ML SYRINGE IV PRN (20:24)
[2022-10-29] MEDS ORDERED: GLUCAGON FOR INJ 1 MG VIAL SQ PRN (20:24)
[2022-10-29] MEDS ORDERED: GLUCOSE 10 TAB/TUBE PO PRN (20:24)
[2022-10-29] MEDS ORDERED: GLUCOSE 40% GEL 15 GM TUBE PO PRN (20:24)
[2022-10-29] MEDS ORDERED: CARBOHYDRATES FOR HYPOGLYCEMIA PO PRN (20:24)
--- NOTE | 2022-10-29 20:36 | History & Physical Report ---
Date of Service October 29, 2022 Assessment & Plan (1) Acute ST elevation myocardial infarction (STEMI): (2) DM II (diabetes mellitus, type II), controlled: (3) Benign essential HTN: (4) Obesity (BMI 30.0-34.9): (5) HLD (hyperlipidemia): Plan Admit to ICU S/p cardiac stent s/p RCa stent Monitoring while on bipap received dose of iv lasix 80 mg given brillinta ordered asa, statins, beta blockers, chance inhibiters type 2 diabetes mx strict diabetes mx lantus 12 units sub q hs code status full code i have discussed plan of care with patients family at bedside Admission and Anticipated Discharge Date Admission Date: October 29, 2022 History of Present Illness Chief Complaint: chest pain Primary Care Provider: Obinna Lopez MD 62 year old female with history of diabetes type 2 hypertension depression with lower ext edema and exertional dyspnea came to the er with severe crushing chest pain , was a heart alert in the er and was taken for a cardiac cath . Patient had a rca stent placed with severe multi vessel disease. Patient had a transient episode of chd and went into hypercarbic resp failure which quickly responded to bipap. Patient was transferred to ICU and is been monitored overnite. Patient has recieved a dose of brillinta . At time of evaluation in er patient is on a bipap and has no chest pain. She is a full code I spoke to her family at bedside. Allergies Allergy/AdvReac Type Severity Reaction Status Date / Time ceftriaxone Allergy Severe EDEMA Verified 10/29/22 17:49 FACE/LIPS/TONGUE levofloxacin Allergy Severe OLIVAREZ Verified 10/29/22 17:49 ROHIT REACTION AT END OF THERAPY. amoxicillin Allergy Intermediate eyes swell Verified 10/29/22 17:49 shut clavulanic acid Allergy Intermediate EYES SWELL Verified 10/29/22 17:49 SHUT latex Allergy Intermediate SKIN Verified 10/29/22 17:49 REDDENED, IRRITATION minocycline Allergy Intermediate HEADACHE/EYES Verified 10/29/22 17:49 PUFFY naproxen Allergy Intermediate hives Verified 10/29/22 17:49 pollen extracts Allergy Intermediate SNEEZING, Verified 10/29/22 17:49 CONGESTION Sulfa (Sulfonamide Allergy Intermediate HIVES/SWELL Verified 10/29/22 17:49 Antibiotics) ING metformin Allergy Unknown upset Verified 10/29/22 17:49 stomach, diarrhea nickel Allergy Unknown UNKNOWN Verified 10/29/22 17:49 bupropion [From Wellbutrin] AdvReac Intermediate FELT LIKE Verified 10/29/22 17:49 PASSING OUT simvastatin AdvReac Intermediate Muscle Pain Verified 10/29/22 17:49 erythromycin base AdvReac Unknown unknown Verified 10/29/22 17:49 valsartan AdvReac FATIGUE Verified 10/29/22 17:49 peanuts Allergy Severe EDEMA Uncoded 10/29/22 17:49 FACE/LIPS/TONGUE INFLUENZA VACCINE Allergy Intermediate not Uncoded 10/29/22 17:49 absorbed into system leaves reddened ball sized area corn&corn products AdvReac Severe migraines Uncoded 10/29/22 17:49 Home Medications Medication Instructions Recorded Confirmed Type albuterol sulfate 90 mcg/actuation 2 puff inhalation Q6H PRN Cough 10/29/22 10/29/22 History aerosol inhaler ascorbic acid (vitamin C) 500 mg 500 mg PO DAILY 10/29/22 10/29/22 History tablet (Vitamin C) aspirin 81 mg tablet,delayed 81 mg PO DAILY 10/29/22 10/29/22 History release cholecalciferol (vitamin D3) 125 125 mcg PO DAILY 10/29/22 10/29/22 History mcg (5,000 unit) tablet (Vitamin D3) cyclobenzaprine 10 mg tablet 10 mg PO HS PRN MUSCLE SPASMS 10/29/22 10/29/22 History dulaglutide 4.5 mg/0.5 mL 4.5 mg subcut WK 10/29/22 10/29/22 History subcutaneous pen injector (Trulicity) furosemide 20 mg tablet 20 mg PO QAM 10/29/22 10/29/22 History insulin detemir U-100 100 unit/mL 12 unit subcut HS 10/29/22 10/29/22 History (3 mL) subcutaneous pen (Levemir FlexPen) loratadine 5 mg-pseudoephedrine ER 1 tab PO QAM 10/29/22 10/29/22 History 120 mg tablet,extended release,12hr (Claritin-D 12 Hour) losartan 100 mg tablet 100 mg PO QAM 10/29/22 10/29/22 History propranolol 60 mg tablet 60 mg PO BID 10/29/22 10/29/22 History sertraline 100 mg tablet 100 mg PO QAM 10/29/22 10/29/22 History triamcinolone acetonide 0.1 % 1 applic topical BID PRN RASH ON 10/29/22 10/29/22 History topical cream ARMS & LEGS--ITCHING Past Med/Surg History Medical History (Updated 10/29/22 @ 18:10 by Liseth Sanchez PA-C) Benign essential HTN DM II (diabetes mellitus, type II), controlled HLD (hyperlipidemia) Obesity (BMI 30.0-34.9) Surgical History (Updated 10/29/22 @ 18:10 by Liseth Sanchez PA-C) History of kidney surgery Perinephritic mass excised Hx of cataract surgery Hx of hysterectomy Family History (Updated 10/29/22 @ 18:10 by Liseth Sanchez PA-C) Father Heart disease Cancer Mother Diabetes Sister Heart disease Social History (Updated 10/29/22 @ 18:11 by Liseth Sanchez PA-C) Smoking Status: Never smoker Hx Alcohol Use: No Hx Substance Use: No Preferred Language: Bermudian Communication Ability: Effective [employer] Consultant Required: No Beliefs That Will Affect Care: None Current Living Situation: Family Current Living Situation Comment: patient lives with her mother, and acts as her mother's caregiver Other Information That Helps Us Care for You: No Feels Safe at Home: Yes Safety Concerns: Feels Safe At This Time Assistive Devices: Glasses Review of Systems Review of Systems: as noted in h/p rest reviewed as negative Physical Exam Physical Exam: HEENT:No JVD , Normocephalic , atraumatic CV: S1/S2+ , systolic murmur Resp:on bipap, conducted sounds +. GI: Abdomen soft non tender . Musculoskeletal: examined for joint tenderness. Skin: no rashes Psych: Normal affect Neuro: Patient is awake alert bipap + Ext: no edema. Results & Data Results & Data Vital Signs (Past 12 Hours) Vital Signs Temp Pulse Pulse Resp BP BP BP 10/29/22 20:04 93 H 30 H 106/73 10/29/22 19:08 14 10/29/22 18:53 14 10/29/22 17:47 78 22 131/96 10/29/22 17:47 10/29/22 17:40 90 10/29/22 17:37 36.5 C 94 H 22 137/100 Pulse Ox O2 Del Method O2 Flow Rate FiO2 10/29/22 20:04 97 BiPAP 40 10/29/22 19:08 98 40 10/29/22 18:53 100 10/29/22 17:47 96 Nasal Cannula 2 10/29/22 17:47 Room Air 2 10/29/22 17:40 10/29/22 17:37 90 Room Air 2 Laboratory Results Home Medications Medication Instructions Recorded Confirmed Last Taken albuterol sulfate 90 mcg/actuation 2 puff inhalation Q6H PRN Cough 10/29/22 10/29/22 Unknown aerosol inhaler ascorbic acid (vitamin C) 500 mg 500 mg PO DAILY 10/29/22 10/29/22 10/29/22 tablet (Vitamin C) aspirin 81 mg tablet,delayed 81 mg PO DAILY 10/29/22 10/29/22 10/29/22 release cholecalciferol (vitamin D3) 125 125 mcg PO DAILY 10/29/22 10/29/22 10/29/22 mcg (5,000 unit) tablet (Vitamin D3) cyclobenzaprine 10 mg tablet 10 mg PO HS PRN MUSCLE SPASMS 10/29/22 10/29/22 Unknown dulaglutide 4.5 mg/0.5 mL 4.5 mg subcut WK 10/29/22 10/29/22 10/21/22 subcutaneous pen injector (Trulicity) furosemide 20 mg tablet 20 mg PO QAM 10/29/22 10/29/22 10/29/22 insulin detemir U-100 100 unit/mL 12 unit subcut HS 10/29/22 10/29/22 10/28/22 (3 mL) subcutaneous pen (Levemir FlexPen) loratadine 5 mg-pseudoephedrine ER 1 tab PO QAM 10/29/22 10/29/22 10/29/22 120 mg tablet,extended release,12hr (Claritin-D 12 Hour) losartan 100 mg tablet 100 mg PO QAM 10/29/22 10/29/22 10/29/22 propranolol 60 mg tablet 60 mg PO BID 10/29/22 10/29/22 10/29/22 08:00 sertraline 100 mg tablet 100 mg PO QAM 10/29/22 10/29/22 10/29/22 triamcinolone acetonide 0.1 % 1 applic topical BID PRN RASH ON 10/29/22 10/29/22 Unknown topical cream ARMS & LEGS--ITCHING Active Medications Generic Name Dose Route Start Last Admin Trade Name Aaronq PRN Reason Stop Dose Admin Hydromorphone HCl 0.25 mg 10/29/22 17:39 10/29/22 17:44 Hydromorphone Inj 0.5 Mg/0.5 Ml Syr IV 11/12/22 17:38 0.25 mg Q10M PRN Administration Pain Diagnostic Findings Hydromorphone HCl (Hydromorphone Inj 0.5 Mg/0.5 Ml Syr) 0.25 mg IV Q10M PRN PRN Reason: Pain Stop: 11/12/22 17:38 Last Admin: 10/29/22 17:44 Dose: 0.25 mg Documented By: PRASANNA Medications Administered Current Inpatient Medications Acetaminophen (Acetaminophen 325 Mg Tab) 650 mg PO Q4H PRN PRN Reason: MILD Pain (Scale 1,2,3) Stop: 11/28/22 19:34 Acetaminophen (Acetaminophen 325 Mg Tab) 650 mg PO Q4H PRN PRN Reason: Moderate Pain (Scale 4, 5, 6) Stop: 11/28/22 20:23 Aspirin (Aspirin 81 Mg Ectab) 81 mg PO QAM ANNIA Stop: 11/29/22 08:59 Dextrose (Dextrose 50% 50 Ml Syringe) 25 - 50 ml IV UD PRN; Protocol PRN Reason: Hypoglycemia Protocol Stop: 11/28/22 20:23 Glucagon (Glucagon For Inj 1 Mg Vial) 1 mg SQ UD PRN; Protocol PRN Reason: Hypoglycemia Protocol Stop: 11/28/22 20:23 Glucose (Glucose 10 Tab/Tube) 4 - 8 tab PO UD PRN; Protocol PRN Reason: Hypoglycemia Treatment Stop: 11/28/22 20:23 Glucose (Glucose 40% Gel 15 Gm Tube) 15 - 30 gm PO UD PRN; Protocol PRN Reason: Hypoglycemia Protocol Stop: 11/28/22 20:23 Hydromorphone HCl (Hydromorphone Inj 0.5 Mg/0.5 Ml Syr) 0.25 mg IV Q10M PRN PRN Reason: Pain Stop: 11/12/22 17:38 Last Admin: 10/29/22 17:44 Dose: 0.25 mg Insulin Aspart (Insulin Aspart Per Unit Charge) 0 units SC ACHS [facility] Stop: 11/28/22 20:59 Losartan Potassium (Losartan Potassium 25 Mg Tab) 25 mg PO QAM [facility] Stop: 11/29/22 08:59 Metoprolol Tartrate (Metoprolol Tartrate 25 Mg Tab) 12.5 mg PO BID [facility] Stop: 11/28/22 20:59 Miscellaneous (Icu Protocol For Hyperglycemia) 1 each N/A ACHS [facility] Stop: 10/31/22 20:59 Miscellaneous (Carbohydrates For Hypoglycemia ) 15 - 30 gm PO UD PRN PRN Reason: Hypoglycemia Protocol Stop: 11/28/22 20:23 Ondansetron HCl (Ondansetron Inj 2 Mg/Ml 2 Ml Vial) 4 mg IV Q6H PRN PRN Reason: Nausea And Vomiting Stop: 11/28/22 19:34 Ondansetron HCl (Ondansetron Inj 2 Mg/Ml 2 Ml Vial) 4 mg IV Q4H PRN PRN Reason: Nausea And Vomiting Stop: 11/28/22 20:23 Ticagrelor (Ticagrelor 90 Mg Tab) 90 mg PO BID [facility] Stop: 11/29/22 08:59 Code Status & VTE Plan Code Status full code VTE Prophylaxis Plan VTE Prophylaxis will be ordered: Yes
[2022-10-29] MEDS ORDERED: ICU Protocol for HYPERglycemia SCH (21:00)
[2022-10-29] MEDS ORDERED: MAGNESIUM SULFATE / D5W 1 GM/100 ML BAG IV ONE (21:08)
[2022-10-29] MEDS: LANTUS PER UNIT CHARGE SQ SCH (21:39)
[2022-10-29] MEDS: INSULIN ASPART PER UNIT CHARGE SC SCH (21:39)
--- NOTE | 2022-10-29 21:40 | Critical Care Consultation ---
Date of Consultation October 29, 2022 Assessment & Plan (1) Acute ST elevation myocardial infarction (STEMI): Reason Critically Ill: 62-year-old female presents to the ICU following inferior ST elevation MD requiring PCI with JESSENIA x1 to the RCA. Patient also exhibited respiratory failure and requiring BiPAP and undergoing diuresis. Patient found in cath to have severe CAD and will likely need CABG in the future. Neuro - [facility] ICU: Negative Depressioncontinue sertraline Cardiac - STEMIinferior STEMI, now s/p PCI with JESSENIA x1 to the RCA -Noted to have severe CAD, and will likely need CABG in the future -TTE pending -ASA, BB, Brilinta, losartan (previously statin intolerant) -Trend troponins for peak -Monitor in ICU overnight Respiratory - Acute hypercapnic respiratory failureimproving. Chest x-ray consistent with pulmonary edema, responsive to BiPAP and IV Lasix -Plan to continue BiPAP overnight. Will reassess need for further diuresis -Continuous monitoring on pulse ox GI - N.p.o. for now RENAL/LYTES - Creatinine within normal limits. Monitor routine BMPs and replete electrolytes as indicated - Foleystrict I's and O's ENDO - DM type IIhold Trulicity in favor of sliding scale. ICU hyperglycemic protocol HEME - H&H stable, monitor routine CBC ID - No indication for vasopressors at this LINES/IV ACCESS - Peripheral IVs DVT PROPHYLAXIS - SCDs I have personally spent 35 minutes of critical care time in the direct management of this patient. This is a life/limb threatening event. This includes time spent evaluating patient, direct bedside care, chart review, placing orders, interpretation of diagnostic studies, discussion with consultants, patient, and family members, as well as other required patient management activities. This time is exclusive of all separately billable procedures, and teaching time and separate from and in addition to any other critical care service time. Thank you for allowing us to participate in the care of this patient. Please refer to my attending physician's documentation for any further recommendations. (2) Respiratory failure with hypercapnia: (3) HLD (hyperlipidemia): (4) CAD (coronary artery disease): (5) DM II (diabetes mellitus, type II), controlled: (6) Benign essential HTN: History of Present Illness Attending Physician: Kevan Tuttle MD History of Present Illness Patient is a 62-year-old female with past medical history of DM type II, depression, HTN, HLD who presented to the emergency department with complaints of shortness of breath and crushing chest pain 12/25. She was found to have inferior ST elevations on EKG and heart alert was initiated. She was taken to the [facility] where she received successful PCI of the distal RCA into the PDA with single JESSENIA. She was found to have severe multivessel disease mostly known culprit and will likely need CABG in the future. Patient did experience hypercarbic respiratory failure during cath and was given 80 of Lasix and placed on BiPAP. She now presents to the ICU for further management at this time. On arrival to the ICU the patient is alert and oriented without acute distress. She remains on BiPAP but does not exhibit labored breathing. She denies chest pain or shortness of breath. She denies lightheadedness, dizziness, changes in vision, sore throat, recent fevers or illness, abdominal pain, nausea vomiting or diarrhea, diaphoresis, changes in gait. She does report recent bilateral lower extremity edema. Allergies Allergy/AdvReac Type Severity Reaction Status Date / Time ceftriaxone Allergy Severe EDEMA Verified 10/29/22 17:49 FACE/LIPS/TONGUE levofloxacin Allergy Severe OLIVAREZ Verified 10/29/22 17:49 ROHIT REACTION AT END OF THERAPY. amoxicillin Allergy Intermediate eyes swell Verified 10/29/22 17:49 shut clavulanic acid Allergy Intermediate EYES SWELL Verified 10/29/22 17:49 SHUT latex Allergy Intermediate SKIN Verified 10/29/22 17:49 REDDENED, IRRITATION minocycline Allergy Intermediate HEADACHE/EYES Verified 10/29/22 17:49 PUFFY naproxen Allergy Intermediate hives Verified 10/29/22 17:49 pollen extracts Allergy Intermediate SNEEZING, Verified 10/29/22 17:49 CONGESTION Sulfa (Sulfonamide Allergy Intermediate HIVES/SWELL Verified 10/29/22 17:49 Antibiotics) ING metformin Allergy Unknown upset Verified 10/29/22 17:49 stomach, diarrhea nickel Allergy Unknown UNKNOWN Verified 10/29/22 17:49 corn Allergy Verified 10/30/22 15:27 peanut Allergy Verified 10/30/22 15:27 peanut oil Allergy Verified 10/30/22 15:27 bupropion [From Wellbutrin] AdvReac Intermediate FELT LIKE Verified 10/29/22 17:49 PASSING OUT simvastatin AdvReac Intermediate Muscle Pain Verified 10/29/22 17:49 erythromycin base AdvReac Unknown unknown Verified 10/29/22 17:49 valsartan AdvReac FATIGUE Verified 10/29/22 17:49 peanuts Allergy Severe EDEMA Uncoded 10/29/22 17:49 FACE/LIPS/TONGUE INFLUENZA VACCINE Allergy Intermediate not Uncoded 10/29/22 17:49 absorbed into system leaves reddened ball sized area corn&corn products AdvReac Severe migraines Uncoded 10/29/22 17:49 Home Medications Medication Instructions Recorded Confirmed Type albuterol sulfate 90 mcg/actuation 2 puff inhalation Q6H PRN Cough 10/29/22 10/29/22 History aerosol inhaler ascorbic acid (vitamin C) 500 mg 500 mg PO DAILY 10/29/22 10/29/22 History tablet (Vitamin C) aspirin 81 mg tablet,delayed 81 mg PO DAILY 10/29/22 10/29/22 History release cholecalciferol (vitamin D3) 125 125 mcg PO DAILY 10/29/22 10/29/22 History mcg (5,000 unit) tablet (Vitamin D3) cyclobenzaprine 10 mg tablet 10 mg PO HS PRN MUSCLE SPASMS 10/29/22 10/29/22 History dulaglutide 4.5 mg/0.5 mL 4.5 mg subcut WK 10/29/22 10/29/22 History subcutaneous pen injector (Trulicity) furosemide 20 mg tablet 20 mg PO QAM 10/29/22 10/29/22 History insulin detemir U-100 100 unit/mL 12 unit subcut HS 10/29/22 10/29/22 History (3 mL) subcutaneous pen (Levemir FlexPen) loratadine 5 mg-pseudoephedrine ER 1 tab PO QAM 10/29/22 10/29/22 History 120 mg tablet,extended release,12hr (Claritin-D 12 Hour) losartan 100 mg tablet 100 mg PO QAM 10/29/22 10/29/22 History propranolol 60 mg tablet 60 mg PO BID 10/29/22 10/29/22 History sertraline 100 mg tablet 100 mg PO QAM 10/29/22 10/29/22 History triamcinolone acetonide 0.1 % 1 applic topical BID PRN RASH ON 10/29/22 10/29/22 History topical cream ARMS & LEGS--ITCHING Patient History Medical History (Updated 10/30/22 @ 09:33 by Jessica Long PA-C) Benign essential HTN DM II (diabetes mellitus, type II), controlled HLD (hyperlipidemia) Obesity (BMI 30.0-34.9) Surgical History (Updated 10/29/22 @ 18:10 by Liseth Sanchez PA-C) History of kidney surgery Perinephritic mass excised Hx of cataract surgery Hx of hysterectomy Family History (Updated 10/29/22 @ 18:10 by Liseth Sanchez PA-C) Father Heart disease Cancer Mother Diabetes Sister Heart disease Social History (Updated 10/29/22 @ 18:11 by Liseth Sanchez PA-C) Smoking Status: Never smoker Hx Alcohol Use: No Hx Substance Use: No Preferred Language: Peruvian Communication Ability: Effective Machinist Outside Required: No Beliefs That Will Affect Care: None Current Living Situation: Family Current Living Situation Comment: patient lives with her mother, and acts as her mother's caregiver Other Information That Helps Us Care for You: No Feels Safe at Home: Yes Safety Concerns: Feels Safe At This Time Assistive Devices: None Review of Systems Review of Systems: All systems reviewed & are unremarkable except as noted in HPI & below Physical Exam Constitutional: cooperative and comfortable; no acute distress Eyes: PERRL, conjunctivae normal, anicteric sclerae ENMT: external ear and nose normal, oropharynx normal Neck: trachea midline, no thyromegaly Respiratory: Symmetrical chest wall movement, no use of accessory muscles. Remains on BiPAP. Lungs clear to auscultation bilaterally and upper and middle lobes with coarse crackles noted in the bases Cardiovascular: RRR, no murmur, no edema Vessels: no JVD Extremities: + edema (Trace pedal edema bilaterally) Gastrointestinal (Abdomen): normal bowel sounds, soft, nontender, no hepatosplenomegaly Musculoskeletal: no cyanosis or clubbing, extremities motor strength 5/5 Skin: no rashes, warm and dry Neurologic: PERRL, EOMI, accommodation nl, no face palsy, no dysarthria Psychiatric: A+Ox3, euthymic affect Genitourinary: Indwelling Macias catheter present, urine clear and yellow Results & Data Results & Data Vital Signs (Past 12 Hours) Vital Signs Temp Pulse Pulse Resp BP BP BP 10/29/22 20:04 93 H 30 H 106/73 10/29/22 19:08 14 10/29/22 18:53 14 10/29/22 17:47 78 22 131/96 10/29/22 17:47 10/29/22 17:40 90 10/29/22 17:37 36.5 C 94 H 22 137/100 Pulse Ox O2 Del Method O2 Flow Rate FiO2 10/29/22 20:04 97 BiPAP 40 10/29/22 19:08 98 40 10/29/22 18:53 100 10/29/22 17:47 96 Nasal Cannula 2 10/29/22 17:47 Room Air 2 10/29/22 17:40 10/29/22 17:37 90 Room Air 2 Coding Level of Care Code 00865 CRITICAL CARE 1ST 30-74M Diagnoses Acute ST elevation myocardial infarction (STEMI) I21.3 Respiratory failure with hypercapnia J96.92 HLD (hyperlipidemia) E78.5 CAD (coronary artery disease) I25.10 DM II (diabetes mellitus, type II), controlled E11.9 Benign essential HTN I10
[2022-10-29] MEDS: METOPROLOL TARTRATE 25 MG TAB PO SCH (21:49)
[2022-10-30 04:35] LABS: Basophils # (auto) 0.03 K/uL (0-0.2); Basophils % (auto) 0.3 %; Eosinophils # (auto) 0.13 K/uL (0-0.50); Eosinophils % (auto) 1.3 %; Hematocrit (blood only) 42.7 % (37.0-47.0); Hemoglobin 14.3 g/dl (12.0-16.0); Immature Granulocytes # (auto) 0.05 K/uL (0.01-0.20); Immature Granulocytes % (auto) 0.5 %; Lymphocytes # (auto) 1.62 K/uL (1.2-3.4); Lymphocytes % (auto) 16.4 %; Mean Corpuscular Hemoglobin 28.2 pg (25.0-34.0); Mean Corpuscular Hgb Conc 33.5 g/dL (32.0-36.0); Mean Corpuscular Volume 84.2 fL (80.0-100.0); Monocytes # (auto) 0.76 K/uL (0.11-0.59); Monocytes % (auto) 7.7 %; Neutrophils # (auto) 7.31 K/uL (1.40-6.50); Neutrophils % (auto) 73.8 %; Platelet Count 233 K/uL (130-400); RDW Coefficient of Variation 13.2 % (11.5-14.5); RDW Standard Deviation 40.6 fL (36.4-46.3); Red Blood Count 5.07 M/uL (4.20-5.40)
[2022-10-30 04:43] LABS: Calcium 8.9 mg/dl (8.6-10.3); Chol HDL Ratio 5.1 (0-5); Creatinine Clr Calc Pharmacy 83.3 ml/min; Est GFR (African American) 96.8 ml/min; Est GFR (Non-African American) 83.5 ml/min; Potassium 4.4 mmol/L (3.5-5.1)
[2022-10-30 07:10] LABS: Estimated Average Glucose 183 mg/dl
--- NOTE | 2022-10-30 07:36 | Critical Care Progress Note ---
Date of Service October 30, 2022 Assessment & Plan (1) Acute ST elevation myocardial infarction (STEMI): Plan: Reason Critically Ill: 62-year-old female presents to the ICU following inferior ST elevation MT requiring PCI with JESSENIA x1 to the RCA. Patient also exhibited respiratory failure and requiring BiPAP and undergoing diuresis. Patient found in cath to have severe CAD and will likely need CABG in the future. Neuro - [facility] ICU: Negative Depressioncontinue sertraline Cardiac - STEMIinferior STEMI, now s/p PCI with JESSENIA x1 to the RCA -Noted to have severe CAD, and will need CABG in the future -TTE performed and pending report -ASA, BB, Brilinta, losartan (previously statin intolerant) -Trend troponins for peak Respiratory - Acute hypercapnic respiratory failureresolved Acute hypoxic respiratory failure: Improving weaning oxygen -May benefit from LAURA evaluation in futures -Continuous monitoring on pulse ox GI - Heart healthy diet RENAL/LYTES - Creatinine within normal limits. Monitor routine BMPs and replete electrolytes as indicated - Can discontinue Macias ENDO - DM type IIhold Trulicity in favor of sliding scale. ICU hyperglycemic protocol HEME - H&H stable, monitor routine CBC ID - No indication for vasopressors at this LINES/IV ACCESS - Peripheral IVs, cardiology to discontinue right sheath DVT PROPHYLAXIS - SCDs Likely stable for downgrade out of ICU later today once echo is performed. (2) Respiratory failure with hypercapnia: (3) HLD (hyperlipidemia): (4) CAD (coronary artery disease): (5) DM II (diabetes mellitus, type II), controlled: (6) Benign essential HTN: Admission and Anticipated Discharge Date Admission Date: October 29, 2022 Subjective Improved from overnight. Discussed case with Dr. Gordon at the bedside with the patient. Physical Exam Physical Exam: General: Alert. nontoxic. Skin: Warm, dry, Head: Atraumatic Ears, nose, mouth and throat: airway patent Cardiovascular: Normal peripheral perfusion Respiratory: no respiratory distress Gastrointestinal: Non distended Musculoskeletal: No deformity Results & Data Results & Data Vital Signs (Past 12 Hours) Vital Signs Temp Pulse Pulse Resp BP BP Pulse Ox 10/30/22 05:45 82 17 98 10/30/22 05:45 114/72 10/30/22 05:30 110/76 10/30/22 05:30 78 12 98 10/30/22 05:15 107/75 10/30/22 05:15 84 15 98 10/30/22 05:00 77 12 98 10/30/22 05:00 108/83 10/30/22 04:45 113/78 10/30/22 04:45 81 13 98 10/30/22 04:30 113/82 10/30/22 04:30 84 15 97 10/30/22 04:15 85 18 98 10/30/22 04:15 113/81 10/30/22 04:00 79 13 97 10/30/22 04:00 105/80 10/30/22 03:46 105/75 10/30/22 03:46 80 18 10/30/22 03:30 85 14 96 10/30/22 03:30 107/84 10/30/22 03:15 81 15 97 10/30/22 03:15 108/78 10/30/22 03:00 84 13 97 10/30/22 03:00 104/81 10/30/22 02:45 116/78 10/30/22 02:45 83 13 98 10/30/22 02:30 104/78 10/30/22 02:30 86 12 96 10/30/22 02:15 111/85 10/30/22 02:15 85 20 97 10/30/22 02:00 84 12 98 10/30/22 02:00 103/79 10/30/22 01:45 112/74 10/30/22 01:45 83 13 98 10/30/22 01:30 84 21 98 10/30/22 01:30 107/85 10/30/22 01:15 112/79 10/30/22 01:15 85 15 97 10/30/22 01:00 84 12 98 10/30/22 00:00 85 10/30/22 02:14 86 15 98 10/30/22 00:45 106/79 10/30/22 00:45 84 13 98 10/30/22 00:30 106/75 10/30/22 00:30 88 19 98 10/30/22 00:15 116/77 10/30/22 00:15 86 17 98 10/30/22 00:00 85 15 98 10/30/22 00:00 108/78 10/29/22 23:45 87 15 98 10/29/22 23:45 107/86 10/29/22 23:30 114/67 10/29/22 23:30 85 30 H 97 10/29/22 23:30 85 21 96 10/29/22 23:15 87 30 H 95 10/29/22 23:15 115/82 10/29/22 23:00 87 25 H 97 10/29/22 23:00 113/80 10/29/22 22:45 89 18 96 10/29/22 22:45 115/79 10/29/22 22:30 80 30 H 97 10/29/22 22:30 113/80 10/29/22 22:15 87 17 98 10/29/22 22:15 104/81 10/29/22 22:00 86 31 H 99 10/29/22 22:00 105/74 10/29/22 21:45 83 30 H 98 10/29/22 21:45 106/78 10/29/22 21:31 86 31 H 98 10/29/22 21:31 103/75 10/29/22 21:30 85 30 H 97 10/29/22 21:15 91 H 20 99 10/29/22 21:15 102/67 10/29/22 21:00 86 23 99 10/29/22 21:00 102/74 10/29/22 20:45 89 22 98 10/29/22 20:45 103/72 10/29/22 20:30 89 10 L 97 10/29/22 20:30 101/75 10/29/22 20:15 93 H 17 98 10/29/22 20:15 99/80 L 10/29/22 20:00 99 H 14 98 10/29/22 20:00 107/75 10/29/22 19:49 97 H 21 10/29/22 19:49 98/80 L 10/29/22 20:04 36.3 C L 93 H 30 H 106/73 97 O2 Del Method FiO2 10/30/22 05:45 10/30/22 05:45 10/30/22 05:30 10/30/22 05:30 10/30/22 05:15 10/30/22 05:15 10/30/22 05:00 10/30/22 05:00 10/30/22 04:45 10/30/22 04:45 10/30/22 04:30 10/30/22 04:30 10/30/22 04:15 10/30/22 04:15 10/30/22 04:00 10/30/22 04:00 10/30/22 03:46 10/30/22 03:46 10/30/22 03:30 10/30/22 03:30 10/30/22 03:15 10/30/22 03:15 10/30/22 03:00 10/30/22 03:00 10/30/22 02:45 10/30/22 02:45 10/30/22 02:30 10/30/22 02:30 10/30/22 02:15 10/30/22 02:15 10/30/22 02:00 10/30/22 02:00 10/30/22 01:45 10/30/22 01:45 10/30/22 01:30 10/30/22 01:30 10/30/22 01:15 10/30/22 01:15 10/30/22 01:00 10/30/22 00:00 10/30/22 02:14 40 10/30/22 00:45 10/30/22 00:45 10/30/22 00:30 10/30/22 00:30 10/30/22 00:15 10/30/22 00:15 10/30/22 00:00 10/30/22 00:00 10/29/22 23:45 10/29/22 23:45 10/29/22 23:30 10/29/22 23:30 10/29/22 23:30 40 10/29/22 23:15 10/29/22 23:15 10/29/22 23:00 10/29/22 23:00 10/29/22 22:45 10/29/22 22:45 10/29/22 22:30 10/29/22 22:30 10/29/22 22:15 10/29/22 22:15 10/29/22 22:00 10/29/22 22:00 10/29/22 21:45 10/29/22 21:45 10/29/22 21:31 10/29/22 21:31 10/29/22 21:30 10/29/22 21:15 10/29/22 21:15 10/29/22 21:00 10/29/22 21:00 10/29/22 20:45 10/29/22 20:45 10/29/22 20:30 10/29/22 20:30 10/29/22 20:15 10/29/22 20:15 10/29/22 20:00 10/29/22 20:00 10/29/22 19:49 10/29/22 19:49 10/29/22 20:04 BiPAP 40 Critical Care Results & Data Vital Signs (Past 12 Hours) Vital Signs Pulse Resp BP Pulse Ox FiO2 10/30/22 08:00 80 15 99 10/30/22 08:00 110/72 10/30/22 07:30 79 15 97 10/30/22 07:00 83 14 98 10/30/22 07:00 118/81 10/30/22 05:45 82 17 98 10/30/22 05:45 114/72 10/30/22 05:30 110/76 10/30/22 05:30 78 12 98 10/30/22 05:15 107/75 10/30/22 05:15 84 15 98 10/30/22 05:00 77 12 98 10/30/22 05:00 108/83 10/30/22 04:45 113/78 10/30/22 04:45 81 13 98 10/30/22 04:30 113/82 10/30/22 04:30 84 15 97 10/30/22 04:15 85 18 98 10/30/22 04:15 113/81 10/30/22 04:00 79 13 97 10/30/22 04:00 105/80 10/30/22 03:46 105/75 10/30/22 03:46 80 18 10/30/22 03:30 85 14 96 10/30/22 03:30 107/84 10/30/22 03:15 81 15 97 10/30/22 03:15 108/78 10/30/22 03:00 84 13 97 10/30/22 03:00 104/81 10/30/22 02:45 116/78 10/30/22 02:45 83 13 98 10/30/22 02:30 104/78 10/30/22 02:30 86 12 96 10/30/22 02:15 111/85 10/30/22 02:15 85 20 97 10/30/22 02:00 84 12 98 10/30/22 02:00 103/79 10/30/22 01:45 112/74 10/30/22 01:45 83 13 98 10/30/22 01:30 84 21 98 10/30/22 01:30 107/85 10/30/22 01:15 112/79 10/30/22 01:15 85 15 97 10/30/22 01:00 84 12 98 10/30/22 00:00 85 10/30/22 02:14 86 15 98 40 10/30/22 00:45 106/79 10/30/22 00:45 84 13 98 10/30/22 00:30 106/75 10/30/22 00:30 88 19 98 10/30/22 00:15 116/77 10/30/22 00:15 86 17 98 10/30/22 00:00 85 15 98 10/30/22 00:00 108/78 10/29/22 23:45 87 15 98 10/29/22 23:45 107/86 10/29/22 23:30 114/67 10/29/22 23:30 85 30 H 97 10/29/22 23:30 85 21 96 40 10/29/22 23:15 87 30 H 95 10/29/22 23:15 115/82 10/29/22 23:00 87 25 H 97 10/29/22 23:00 113/80 10/29/22 22:45 89 18 96 10/29/22 22:45 115/79 10/29/22 22:30 80 30 H 97 10/29/22 22:30 113/80 10/29/22 22:15 87 17 98 10/29/22 22:15 104/81 10/29/22 22:00 86 31 H 99 10/29/22 22:00 105/74 10/29/22 21:45 83 30 H 98 10/29/22 21:45 106/78 Lab & Micro Results (Past 24 Hours) RBC 5.07 M/uL (4.20-5.40) 10/30/22 WBC 9.90 K/ul (4.8-10.8) 10/30/22 Hgb 14.3 g/dl (12.0-16.0) 10/30/22 Hct 42.7 % (37.0-47.0) 10/30/22 MCV 84.2 fL (80.0-100.0) 10/30/22 MCH 28.2 pg (25.0-34.0) 10/30/22 MCHC 33.5 g/dL (32.0-36.0) 10/30/22 RDW Standard Deviation 40.6 fL (36.4-46.3) 10/30/22 RDW Coefficient of Variation 13.2 % (11.5-14.5) 10/30/22 Plt Count 233 K/uL (130-400) 10/30/22 MPV 11.0 fL (9.4-12.4) 10/30/22 Neutrophils (%) (Auto) 73.8 % 10/30/22 Lymphocytes (%) (Auto) 16.4 % 10/30/22 Monocytes # (Auto) 0.76 K/uL (0.11-0.59) H 10/30/22 Eosinophils # (Auto) 0.13 K/uL (0-0.50) 10/30/22 Immature Granulocyte % (Auto) 0.5 % 10/30/22 Neutrophils # (Auto) 7.31 K/uL (1.40-6.50) H 10/30/22 Lymphocytes # (Auto) 1.62 K/uL (1.2-3.4) 10/30/22 Monocytes # (Auto) 0.76 K/uL (0.11-0.59) H 10/30/22 Eosinophils # (Auto) 0.13 K/uL (0-0.50) 10/30/22 Basophils # (Auto) 0.03 K/uL (0-0.2) 10/30/22 Immature Granulocyte # (Auto) 0.05 K/uL (0.01-0.20) 3 Na 139 mmol/L (136-145) 10/30/22 K 3.5 mmol/L (3.5-5.1) 10/30/22 Cl 100 mmol/L (98-107) 10/30/22 CO2 32 mmol/L (21-32) 10/30/22 Anion Gap 7 (3-11) 10/30/22 BUN 20 mg/dl (6-23) 10/30/22 Creatinine 0.99 mg/dl (0.6-1.2) 10/30/22 Estimated GFR ( Amer) 70.3 ml/min 10/30/22 Estimated GFR (Non-Af Amer) 60.6 ml/min 10/30/22 BUN/Creatinine Ratio 20.2 (10-20) H 10/30/22 Glu 217 mg/dl (70-99(Fasting)) H 10/30/22 Ca 8.8 mg/dl (8.6-10.3) 10/30/22 Total Bilirubin 0.7 mg/dl (0.2-1.0) 10/29/22 AST 38 U/L (13-39) 10/29/22 ALT 45 U/L (7-52) 10/29/22 Alkaline Phosphatase 87 U/L (34-104) 10/29/22 TP 6.9 gm/dl (6.0-8.3) 10/29/22 Albumin 4.2 gm/dl (3.4-5.0) 10/29/22 Globulin 2.7 gm/dl (2.5-4.0) 10/29/22 Albumin/Globulin Ratio 1.6 (0.9-2) 10/29/22 Mg 1.9 mg/dl (1.7-2.4) 10/30/22 14:29 Calcium Level 8.8 mg/dl (8.6-10.3) 10/30/22 14:29 Prothromb Time International Ratio 1.0 (0.9-1.1) 10/29/22 17:3 6 Diagnostic Findings (Past 24 Hours) Chest X-Ray 10/29/22 17:34 XR chest 1V portable HISTORY: 62 years-old Female Chest pain, nonspecific COMPARISON: Chest CT 08/22/2020 TECHNIQUE: AP view of the chest FINDINGS: Cardiac silhouette is enlarged. Pulmonary vascular congestion with interstitial coarsening. No pneumothorax. Trace pleural effusions with mild bibasilar densities. Bones appear grossly intact. IMPRESSION: 1. Cardiomegaly with pulmonary vascular congestion and interstitial coarsening suggestive of pulmonary edema. 2. Trace pleural effusions with mild bibasilar densities, likely atelectatic. ACT 112: Negative or not required by law. The above report was generated using voice recognition software. It may contain grammatical, syntax or spelling errors. Electronically signed by: Antione Rubin M.D. 10/29/2022 6:05 PM I & O Totals 24 Hours 10/29/22 10/30/22 10/31/22 06:59 06:59 06:59 Intake Total 0 / 0 130 / 130 Output Total 2465 / 2465 Balance -2465 / -2465 130 / 130 Cumulative 10/29/22 17:08 thru 10/30/22 08:00 Intake Total 130 Output Total 2465 Balance -2335 RT Ventilator Mngmt (Last Documented) Ventilator Ordered Settings Respiratory Rate 15 10/30/22 08:00 Fraction of Inspired Oxygen 40 10/30/22 02:14 Ventilator - PT Measurements Respiratory Rate 15 Coding Level of Care Code 28225 SUB INP/OBS CARE 3/50MIN Diagnoses Acute ST elevation myocardial infarction (STEMI) I21.3 Respiratory failure with hypercapnia J96.92 HLD (hyperlipidemia) E78.5 CAD (coronary artery disease) I25.10 DM II (diabetes mellitus, type II), controlled E11.9 Benign essential HTN I10
--- NOTE | 2022-10-30 07:47 | Cardiology Consultation ---
Date of Consultation October 30, 2022 Assessment & Plan (1) Acute ST elevation myocardial infarction (STEMI): (2) Ischemic cardiomyopathy: (3) Acute on chronic heart failure with reduced ejection fraction and diastolic dysfunction: (4) CAD (coronary artery disease): (5) HLD (hyperlipidemia): (6) Benign essential HTN: Plan See Attending broadcast correspondent documentation for recommendations and further plan of care. Supervising Physician Co-Signing Physician Notes Attending Staff: Pt seen and evaluated with AP Staff. Concur with observations and plans 62 yo woman presented with chest pain and dyspnea DX: Inferior STEMI Pt was taken emergently to the clinical laboratory aide Multivessel CAD LAD - 100% ostial with collaterals LCX- 20-30% - distal 70% RCA - 98% distal; PCI with JESSENIA to RCA Bedside ECHO LVEF 20-25% Formal ECHO - PENDING Worsening dyspnea during cath Required BIPAP + IV Lasix Events Overnight: * None reported * Troponin @ 39K Subjective: * Breathing is improved PE: JVP @ base of Neck S1S2 2/6 systolic murmur (soft) +S4 Decreased BS at Left Base No C/C/E - extremities warm and well-perfused + Femoral Line - right groin Plans: * S/P IMI * S/P PCI with JESSENIA to RCA * Continue ASA 81 mg po per day * Continue Brilinta 90 mg po BID * Multivessel CAD - * Outpt consideration for surgical revascularization * May need viability given that LAD territory may be "scarred" * LVEF <20% * Bout of acute combined CHF on presentation - improving * SBP marginal * Start Aldactone 25 mg po per day * Continue Losartan 25 mg po per day * Consider transition to Entresto on 10/31/2022 * Repeat CXR * Lasix 40 mg IV x 1 * K+ 4.5-5 * Mag goal >2 * Stop Lopressor * Start Toprol XL 12.5 mg po per day * LDL 89 * Statin intolerance reported - myalgias * Start Crestor 5 mg po per day * Start Zetia 10 mg po per day * May need PCSK9 * Diabetes control * Cardiac rehab * Nonsmoker Tyree Zhu History of Present Illness Reason for Consultation: STEMI; CHF Requesting Physician: Dr. Gordon, interventional cardiology Attending Physician: Dr. Zhu History of Present Illness Patient is a 62 year old female, previously followed by [facility] cardiology, last visit in 2018. History includes: 1. Hypertension 2. DM type II 3. Dyslipidemia with statin intolerance. Patient presented to [facility] last night with chest pain/dyspnea/diaphoresis. EKG on arrival demonstrated inferior ST elevation, consistent with STEMI. Heart alert called and taken urgently to clinical laboratory aide. Cath revealed multivessel disease, with 100% LAD ostial occlusion with collaterals. PCI with JESSENIA to the RCA. Other disease noted within circumflex. Bedside echo at the time revealed severely reduced LVEF at 20%. During cath, patient developed acute respiratory failure with hypoxia, placed on BIPAP and received IV furosemide with good response. Transferred to ICU post cath. Discussion about transfer to [facility] if no improvement, but respiratory status and chest pain improved post procedure. Patient admits to feeling poorly for several months prior to this event with worsening SOB/chest pain on exertion. Last echo and ischemic work up in 2017 which demonstrated normal LVEF and no ischemia. This morning at time of consult, patient resting in bed comfortably. Denies recurrent chest pain and SOB improved. No edema. Allergies Allergy/AdvReac Type Severity Reaction Status Date / Time ceftriaxone Allergy Severe EDEMA Verified 10/29/22 17:49 FACE/LIPS/TONGUE levofloxacin Allergy Severe OLIVAREZ Verified 10/29/22 17:49 ROHIT REACTION AT END OF THERAPY. amoxicillin Allergy Intermediate eyes swell Verified 10/29/22 17:49 shut clavulanic acid Allergy Intermediate EYES SWELL Verified 10/29/22 17:49 SHUT latex Allergy Intermediate SKIN Verified 10/29/22 17:49 REDDENED, IRRITATION minocycline Allergy Intermediate HEADACHE/EYES Verified 10/29/22 17:49 PUFFY naproxen Allergy Intermediate hives Verified 10/29/22 17:49 pollen extracts Allergy Intermediate SNEEZING, Verified 10/29/22 17:49 CONGESTION Sulfa (Sulfonamide Allergy Intermediate HIVES/SWELL Verified 10/29/22 17:49 Antibiotics) ING metformin Allergy Unknown upset Verified 10/29/22 17:49 stomach, diarrhea nickel Allergy Unknown UNKNOWN Verified 10/29/22 17:49 corn Allergy Verified 10/30/22 15:27 peanut Allergy Verified 10/30/22 15:27 peanut oil Allergy Verified 10/30/22 15:27 bupropion [From Wellbutrin] AdvReac Intermediate FELT LIKE Verified 10/29/22 17:49 PASSING OUT simvastatin AdvReac Intermediate Muscle Pain Verified 10/29/22 17:49 erythromycin base AdvReac Unknown unknown Verified 10/29/22 17:49 valsartan AdvReac FATIGUE Verified 10/29/22 17:49 peanuts Allergy Severe EDEMA Uncoded 10/29/22 17:49 FACE/LIPS/TONGUE INFLUENZA VACCINE Allergy Intermediate not Uncoded 10/29/22 17:49 absorbed into system leaves reddened ball sized area corn&corn products AdvReac Severe migraines Uncoded 10/29/22 17:49 Home Medications Medication Instructions Recorded Confirmed Type albuterol sulfate 90 mcg/actuation 2 puff inhalation Q6H PRN Cough 10/29/22 10/29/22 History aerosol inhaler ascorbic acid (vitamin C) 500 mg 500 mg PO DAILY 10/29/22 10/29/22 History tablet (Vitamin C) aspirin 81 mg tablet,delayed 81 mg PO DAILY 10/29/22 10/29/22 History release cholecalciferol (vitamin D3) 125 125 mcg PO DAILY 10/29/22 10/29/22 History mcg (5,000 unit) tablet (Vitamin D3) cyclobenzaprine 10 mg tablet 10 mg PO HS PRN MUSCLE SPASMS 10/29/22 10/29/22 History dulaglutide 4.5 mg/0.5 mL 4.5 mg subcut WK 10/29/22 10/29/22 History subcutaneous pen injector (Trulicity) furosemide 20 mg tablet 20 mg PO QAM 10/29/22 10/29/22 History insulin detemir U-100 100 unit/mL 12 unit subcut HS 10/29/22 10/29/22 History (3 mL) subcutaneous pen (Levemir FlexPen) loratadine 5 mg-pseudoephedrine ER 1 tab PO QAM 10/29/22 10/29/22 History 120 mg tablet,extended release,12hr (Claritin-D 12 Hour) losartan 100 mg tablet 100 mg PO QAM 10/29/22 10/29/22 History propranolol 60 mg tablet 60 mg PO BID 10/29/22 10/29/22 History sertraline 100 mg tablet 100 mg PO QAM 10/29/22 10/29/22 History triamcinolone acetonide 0.1 % 1 applic topical BID PRN RASH ON 10/29/22 10/29/22 History topical cream ARMS & LEGS--ITCHING Patient History Medical History (Updated 10/30/22 @ 09:33 by Jessica Long PA-C) Benign essential HTN DM II (diabetes mellitus, type II), controlled HLD (hyperlipidemia) Obesity (BMI 30.0-34.9) Surgical History (Updated 10/29/22 @ 18:10 by Liseth Sanchez PA-C) History of kidney surgery Perinephritic mass excised Hx of cataract surgery Hx of hysterectomy Family History (Updated 10/29/22 @ 18:10 by Liseth Sanchez PA-C) Father Heart disease Cancer Mother Diabetes Sister Heart disease Social History (Updated 10/29/22 @ 18:11 by Liseth Sanchez PA-C) Smoking Status: Never smoker Hx Alcohol Use: No Hx Substance Use: No Preferred Language: Serbian Communication Ability: Effective Shuffle Board Operator Required: No Beliefs That Will Affect Care: None Current Living Situation: Family Current Living Situation Comment: patient lives with her mother, and acts as her mother's caregiver Other Information That Helps Us Care for You: No Feels Safe at Home: Yes Safety Concerns: Feels Safe At This Time Assistive Devices: None Review of Systems Review of Systems: All systems reviewed & are unremarkable except as noted in HPI & below Physical Exam Constitutional: WD/WN, vitals as above + obese; no acute distress Neck: normal visual inspection Respiratory: no respiratory distress Auscultation: + diminished lung sounds (L>R) Cardiovascular: Rate/Rhythm: regular rate and regular rhythm Heart Sounds: no murmur Vessels: no JVD Extremities: + edema (trace pretibial edema b/l ) Gastrointestinal (Abdomen): Inspection/Auscultation: abdomen normal to inspection; abdomen not distended Percussion/Palpation: + abdomen tender (mild diffuse tenderness) Skin: no rashes, warm and dry Neurologic: PERRL, EOMI, accommodation nl, no face palsy, no dysarthria Results & Data Vital Signs (Past 12 Hours) Vital Signs Temp Pulse Pulse Resp BP BP Pulse Ox 10/30/22 05:45 82 17 98 10/30/22 05:45 114/72 10/30/22 05:30 110/76 10/30/22 05:30 78 12 98 10/30/22 05:15 107/75 10/30/22 05:15 84 15 98 10/30/22 05:00 77 12 98 10/30/22 05:00 108/83 10/30/22 04:45 113/78 10/30/22 04:45 81 13 98 10/30/22 04:30 113/82 10/30/22 04:30 84 15 97 10/30/22 04:15 85 18 98 10/30/22 04:15 113/81 10/30/22 04:00 79 13 97 10/30/22 04:00 105/80 10/30/22 03:46 105/75 10/30/22 03:46 80 18 10/30/22 03:30 85 14 96 10/30/22 03:30 107/84 10/30/22 03:15 81 15 97 10/30/22 03:15 108/78 10/30/22 03:00 84 13 97 10/30/22 03:00 104/81 10/30/22 02:45 116/78 10/30/22 02:45 83 13 98 10/30/22 02:30 104/78 10/30/22 02:30 86 12 96 10/30/22 02:15 111/85 10/30/22 02:15 85 20 97 10/30/22 02:00 84 12 98 10/30/22 02:00 103/79 10/30/22 01:45 112/74 10/30/22 01:45 83 13 98 10/30/22 01:30 84 21 98 10/30/22 01:30 107/85 10/30/22 01:15 112/79 10/30/22 01:15 85 15 97 10/30/22 01:00 84 12 98 10/30/22 00:00 85 10/30/22 02:14 86 15 98 10/30/22 00:45 106/79 10/30/22 00:45 84 13 98 10/30/22 00:30 106/75 10/30/22 00:30 88 19 98 10/30/22 00:15 116/77 10/30/22 00:15 86 17 98 10/30/22 00:00 85 15 98 10/30/22 00:00 108/78 10/29/22 23:45 87 15 98 10/29/22 23:45 107/86 10/29/22 23:30 114/67 08/14/23 23:30 85 30 H 97 10/29/22 23:30 85 21 96 10/29/22 23:15 87 30 H 95 10/29/22 23:15 115/82 10/29/22 23:00 87 25 H 97 10/29/22 23:00 113/80 10/29/22 22:45 89 18 96 10/29/22 22:45 115/79 10/29/22 22:30 80 30 H 97 10/29/22 22:30 113/80 10/29/22 22:15 87 17 98 10/29/22 22:15 104/81 10/29/22 22:00 86 31 H 99 10/29/22 22:00 105/74 10/29/22 21:45 83 30 H 98 10/29/22 21:45 106/78 10/29/22 21:31 86 31 H 98 10/29/22 21:31 103/75 10/29/22 21:30 85 30 H 97 10/29/22 21:15 91 H 20 99 10/29/22 21:15 102/67 10/29/22 21:00 86 23 99 10/29/22 21:00 102/74 10/29/22 20:45 89 22 98 10/29/22 20:45 103/72 10/29/22 20:30 89 10 L 97 10/29/22 20:30 101/75 10/29/22 20:15 93 H 17 98 10/29/22 20:15 99/80 L 10/29/22 20:00 99 H 14 98 10/29/22 20:00 107/75 10/29/22 19:49 97 H 21 10/29/22 19:49 98/80 L 10/29/22 20:04 36.3 C L 93 H 30 H 106/73 97 O2 Del Method FiO2 10/30/22 05:45 10/30/22 05:45 10/30/22 05:30 10/30/22 05:30 10/30/22 05:15 10/30/22 05:15 10/30/22 05:00 10/30/22 05:00 10/30/22 04:45 10/30/22 04:45 10/30/22 04:30 10/30/22 04:30 10/30/22 04:15 10/30/22 04:15 10/30/22 04:00 10/30/22 04:00 10/30/22 03:46 10/30/22 03:46 10/30/22 03:30 10/30/22 03:30 10/30/22 03:15 10/30/22 03:15 10/30/22 03:00 10/30/22 03:00 10/30/22 02:45 10/30/22 02:45 10/30/22 02:30 10/30/22 02:30 10/30/22 02:15 10/30/22 02:15 10/30/22 02:00 10/30/22 02:00 10/30/22 01:45 10/30/22 01:45 10/30/22 01:30 10/30/22 01:30 10/30/22 01:15 10/30/22 01:15 10/30/22 01:00 10/30/22 00:00 10/30/22 02:14 40 10/30/22 00:45 10/30/22 00:45 10/30/22 00:30 10/30/22 00:30 10/30/22 00:15 10/30/22 00:15 10/30/22 00:00 10/30/22 00:00 10/29/22 23:45 10/29/22 23:45 10/29/22 23:30 10/29/22 23:30 10/29/22 23:30 40 10/29/22 23:15 10/29/22 23:15 10/29/22 23:00 10/29/22 23:00 10/29/22 22:45 10/29/22 22:45 10/29/22 22:30 10/29/22 22:30 10/29/22 22:15 10/29/22 22:15 10/29/22 22:00 10/29/22 22:00 10/29/22 21:45 10/29/22 21:45 10/29/22 21:31 10/29/22 21:31 10/29/22 21:30 10/29/22 21:15 10/29/22 21:15 10/29/22 21:00 10/29/22 21:00 10/29/22 20:45 10/29/22 20:45 10/29/22 20:30 10/29/22 20:30 10/29/22 20:15 10/29/22 20:15 10/29/22 20:00 10/29/22 20:00 10/29/22 19:49 10/29/22 19:49 10/29/22 20:04 BiPAP 40 Laboratory Results Cardiac Enzymes 10/29/22 10/29/22 10/30/22 Range/Units 17:36 17:40 04:11 AST 38 (13-39) U/L Troponin I High Sens 1446.4 H* 21433.5 H* D (0-14) pg/ml B-Natriuretic Peptide 1195 H (0-100) pg/ml Coagulation 10/29/22 10/29/22 Range/Units 17:36 17:40 PT 11.2 (9.0-12.0) Seconds APTT 27.6 (21.0-31.0) Seconds B-Natriuretic Peptide 1195 H (0-100) pg/ml Lipids 10/30/22 Range/Units 04:11 Triglycerides 185 H (0-150) mg/dl Cholesterol 157 (0-200) mg/dl HDL Cholesterol 31 mg/dl Cholesterol/HDL Ratio 5.1 H (0-5) CBC 10/29/22 10/30/22 Range/Units 17:36 04:11 WBC 9.61 9.90 (4.8-10.8) K/ul RBC 5.14 5.07 (4.20-5.40) M/uL Hgb 14.5 14.3 (12.0-16.0) g/dl Hct 44.4 42.7 (37.0-47.0) % Plt Count 273 233 (130-400) K/uL Neut # (Auto) 6.04 7.31 H (1.40-6.50) K/uL Lymph # (Auto) 2.43 1.62 (1.2-3.4) K/uL Branch # (Auto) 0.62 H 0.76 H (0.11-0.59) K/uL Eos # (Auto) 0.41 0.13 (0-0.50) K/uL Baso # (Auto) 0.08 0.03 (0-0.2) K/uL Comprehensive Metabolic Panel 10/29/22 10/30/22 Range/Units 17:36 04:11 Sodium 137 140 (136-145) mmol/L Potassium 4.7 4.4 (3.5-5.1) mmol/L Chloride 102 102 (98-107) mmol/L Carbon Dioxide 28 31 (21-32) mmol/L BUN 20 19 (6-23) mg/dl Creatinine 0.93 0.76 (0.6-1.2) mg/dl Glucose 287 H 152 H (70-99(Fasting)) mg/dl Calcium 8.9 8.9 (8.6-10.3) mg/dl AST 38 (13-39) U/L ALT 45 (7-52) U/L Alkaline Phosphatase 87 (34-104) U/L Total Protein 6.9 (6.0-8.3) gm/dl Albumin 4.2 (3.4-5.0) gm/dl Intake and Output 10/29/22 10/30/22 10/30/22 22:59 06:59 14:59 Intake Total 0 / 0 Output Total 1450 / 2465 1015 / 2465 Balance -1450 / -2465 -1015 / -2465 Intake: Oral 0 / 0 Output: Urine Amount (Catheter) 1450 / 2465 1015 / 2465 Macias/Indwelling 1450 / 2465 1015 / 2465 Other: Weight 88.6 kg Weight Measurement Method Built in [facility] Diagnostic Findings Telemetry reviewed: NSR in the 's. No arrhythmias laboratory apparatus glass blower procedure/documentation reviewed: Summary: 1. Inferior STEMI/acute subtotal distal RCA occlusion 2. Severe multivessel nonculprit CAD -100% ostial LAD chronic total occlusion. Fills partially via right to left and left to left collaterals 70% small distal circumflex. 100% occluded small OM 3 fills via left to left collaterals 70% diffuse residual mid RPDA 3. Acute heart failure with elevated left and right-sided filling pressures 4. Severe pulmonary hypertension (postcapillary) 5. Borderline cardiac output 6. Successful PCI of distal RCA into PDA with single JESSENIA (2.25 x 22 mm [place]; postdilated with 2.75 NC) Echo report reviewed dated October 2022: LV is mildly dilated. There is diffuse hypokinesis to akinesis with scarring of the inferior wall at the basal and mid segments and sparing of the basal and anterolateral segment. LV systolic function is severely reduced. Ejection fraction 15 to 20%. RV is normal in size and function. Mild MR. Dilated inferior vena cava with reduced collapsibility indicates an elevated right atrial pressure of 15 mmHg. Compared to report of the prior study performed in 2017, normal LV wall motion and normal LV systolic function were present at that time. EKG on arrival to ER 10/29/22: Normal sinus rhythm Inferior ST elevation Lateral T wave inversion ACUTE [place] / STEMI Chest xray report reviewed from admission: IMPRESSION: 1. Cardiomegaly with pulmonary vascular congestion and interstitial coarsening suggestive of pulmonary edema. 2. Trace pleural effusions with mild bibasilar densities, likely atelectatic. Medications Administered Current Inpatient Medications Acetaminophen (Acetaminophen 325 Mg Tab) 650 mg PO Q4H PRN PRN Reason: MILD Pain (Scale 1,2,3) Stop: 11/28/22 19:34 Last Admin: 10/30/22 05:22 Dose: 650 mg Aspirin (Aspirin 81 Mg Ectab) 81 mg PO QAM [facility] Stop: 11/29/22 08:59 Dextrose (Dextrose 50% 50 Ml Syringe) 25 - 50 ml IV UD PRN; Protocol PRN Reason: Hypoglycemia Protocol Stop: 11/28/22 20:23 Glucagon (Glucagon For Inj 1 Mg Vial) 1 mg SQ UD PRN; Protocol PRN Reason: Hypoglycemia Protocol Stop: 11/28/22 20:23 Glucose (Glucose 10 Tab/Tube) 4 - 8 tab PO UD PRN; Protocol PRN Reason: Hypoglycemia Treatment Stop: 11/28/22 20:23 Glucose (Glucose 40% Gel 15 Gm Tube) 15 - 30 gm PO UD PRN; Protocol PRN Reason: Hypoglycemia Protocol Stop: 11/28/22 20:23 Insulin Aspart (Insulin Aspart Per Unit Charge) 0 units SC ACHS ANNIA Stop: 11/28/22 20:59 Last Admin: 10/29/22 21:39 Dose: 3 units Insulin Glargine (Lantus Per Unit Charge) 12 units SQ HS ANNIA Stop: 11/28/22 20:59 Last Admin: 10/29/22 21:39 Dose: 12 units Losartan Potassium (Losartan Potassium 25 Mg Tab) 25 mg PO QAM [facility] Stop: 11/29/22 08:59 Metoprolol Tartrate (Metoprolol Tartrate 25 Mg Tab) 12.5 mg PO BID [facility] Stop: 11/28/22 20:59 Last Admin: 10/29/22 21:49 Dose: 12.5 mg Miscellaneous (Carbohydrates For Hypoglycemia ) 15 - 30 gm PO UD PRN PRN Reason: Hypoglycemia Protocol Stop: 11/28/22 20:23 Ondansetron HCl (Ondansetron Inj 2 Mg/Ml 2 Ml Vial) 4 mg IV Q6H PRN PRN Reason: Nausea And Vomiting Stop: 11/28/22 19:34 Last Admin: 10/30/22 01:42 Dose: 4 mg Ticagrelor (Ticagrelor 90 Mg Tab) 90 mg PO BID [facility] Stop: 11/29/22 08:59
[2022-10-30] MEDS: INSULIN ASPART PER UNIT CHARGE SC SCH ×4 (08:22→21:18)
[2022-10-30] MEDS: METOPROLOL TARTRATE 25 MG TAB PO SCH ×2 (08:29→21:19)
[2022-10-30] MEDS: ASPIRIN 81 MG ECTAB PO SCH (08:29)
[2022-10-30] MEDS: LOSARTAN POTASSIUM 25 MG TAB PO SCH (08:29)
[2022-10-30] MEDS: TICAGRELOR 90 MG TAB PO SCH ×2 (08:29→21:19)
[2022-10-30] MEDS ORDERED: FUROSEMIDE 40 MG/4 ML VIAL IV ONE (09:38)
[2022-10-30] MEDS: EZETIMIBE 10 MG TAB PO SCH (10:11)
[2022-10-30] MEDS: SPIRONOLACTONE 25 MG TAB PO SCH (10:11)
--- NOTE | 2022-10-30 10:18 | XRay Report ---
XR chest 1V portable HISTORY: 62 years-old Female CHF; pleural effusions acute shortness of breath COMPARISON: 10/29/2022 TECHNIQUE: AP view of the chest FINDINGS: Cardiac silhouette is enlarged. Progressive pulmonary edema. No pneumothorax. Small pleural effusions with mild bibasilar densities. Bones appear grossly intact. IMPRESSION: 1. Cardiomegaly with progressively worsened pulmonary edema. 2. Small pleural effusions. ACT 112: Negative or not required by law. The above report was generated using voice recognition software. It may contain grammatical, syntax o r spelling errors. Electronically signed by: Antione Rubin M.D. 10/30/2022 10:16 AM
--- NOTE | 2022-10-30 13:29 | Hospitalist Progress Note ---
Date of Service October 30, 2022 Assessment & Plan (1) Acute ST elevation myocardial infarction (STEMI): (2) DM II (diabetes mellitus, type II), controlled: (3) Benign essential HTN: (4) Obesity (BMI 30.0-34.9): (5) HLD (hyperlipidemia): Plan Acute STEMI Ischemic cardiomyopathy Multivessel coronary artery disease Acute on chronic systolic and diastolic heart failure Pulmonary edema secondary to above Acute respiratory failure with hypoxia, hypercarbia --S/P drug-eluting stent to RCA --CXR:Cardiomegaly with progressively worsened pulmonary edema. Small pleural effusions. --ECHO: Left ventricle is mildly dilated. Severe diffuse hypokinesis 2 calluses with sparing of the inferior wall at basal and mid segments and sparing of the basal anteroseptal segment. Left ventricle systolic function is severely reduced. EF 15 to 20%. Mild mitral regurgitation. Dilated inferior vena cava with reduced compressibility, suggestive of right atrial pressure of 15 mmHg. -- Lipid panel:T, total cholesterol 157, only LDL 89, HDL 31 -- Continue supplemental oxygen as needed --Continue aspirin, Brilinta, metoprolol, losartan --Started on Zetia, low-dose rosuvastatin given history of statin intolerance Appreciate cardiology input Monitor volume status Continue Aldactone, IV Lasix as needed Needs follow-up with cardiology upon discharge DM II HbA1c 8.0 Continue insulin while hospitalized Monitor BGs Hypertension Continue metoprolol, losartan Monitor H/O dyslipidemia History of statin intolerance Started on Zetia, low dose rosuvastatin as above DVT Px: SCDs for now Code Status Full Code Admission and Anticipated Discharge Date Admission Date: October 29, 2022 Subjective Patient is seen and examined at bedside States having some pleuritic pain with breathing Denies any dyspnea, dizziness, nausea, vomiting, abdominal pain Saturating well on 3 L supplemental oxygen No other complaints Review of Systems Review of Systems: All systems reviewed & are unremarkable except as noted in Subjective Physical Exam Physical Exam: Physical Exam: Vitals signs as noted above General Appearance:Moderately built and nourished, no apparent distress Head: normocephalic, Atraumatic Eyes: normal inspection, EOMI Neck: supple, Trachea midline Respiratory/Chest: Decreased breath sounds, CTA, No accessory muscle use Cardiovascular: S1, S2, No murmur Abdomen/GI:Soft, Non tender, Bowel sounds present Extremities/Musculoskeletal:normal inspection, Trace pedal edema Neurologic/Psych:AAOX3, grossly no focal neurological deficits Skin: normal color, warm Results & Data Results & Data Vital Signs (Past 12 Hours) Vital Signs Temp Pulse Resp BP Pulse Ox O2 Del Method O2 Flow Rate 10/30/22 12:00 82 23 94 10/30/22 12:00 96/68 L 10/30/22 11:00 83 16 96 10/30/22 11:00 105/84 10/30/22 10:00 81 12 96 10/30/22 10:00 111/76 10/30/22 09:00 83 15 95 10/30/22 09:00 97/69 L 10/30/22 08:25 109/80 10/30/22 08:25 81 19 97 10/30/22 12:00 36.8 C 10/30/22 08:00 Nasal Cannula 3 10/30/22 08:00 36.8 C 10/30/22 08:00 84 10/30/22 08:00 80 15 99 10/30/22 08:00 110/72 10/30/22 07:30 79 15 97 10/30/22 07:00 83 14 98 10/30/22 07:00 118/81 10/30/22 05:45 82 17 98 10/30/22 05:45 114/72 10/30/22 05:30 110/76 10/30/22 05:30 78 12 98 10/30/22 05:15 107/75 10/30/22 05:15 84 15 98 10/30/22 05:00 77 12 98 10/30/22 05:00 108/83 10/30/22 04:45 113/78 10/30/22 04:45 81 13 98 10/30/22 04:30 113/82 10/30/22 04:30 84 15 97 10/30/22 04:15 85 18 98 10/30/22 04:15 113/81 10/30/22 04:00 79 13 97 10/30/22 04:00 105/80 10/30/22 03:46 105/75 10/30/22 03:46 80 18 10/30/22 03:30 85 14 96 10/30/22 03:30 107/84 10/30/22 03:15 81 15 97 10/30/22 03:15 108/78 10/30/22 03:00 84 13 97 10/30/22 03:00 104/81 10/30/22 02:45 116/78 10/30/22 02:45 83 13 98 10/30/22 02:30 104/78 10/30/22 02:30 86 12 96 10/30/22 02:15 111/85 10/30/22 02:15 85 20 97 10/30/22 02:00 84 12 98 10/30/22 02:00 103/79 10/30/22 01:45 112/74 10/30/22 01:45 83 13 98 10/30/22 01:30 84 21 98 10/30/22 01:30 107/85 10/30/22 01:15 112/79 10/30/22 01:15 85 15 97 10/30/22 02:14 86 15 98 FiO2 10/30/22 12:00 10/30/22 12:00 10/30/22 11:00 10/30/22 11:00 10/30/22 10:00 10/30/22 10:00 10/30/22 09:00 10/30/22 09:00 10/30/22 08:25 10/30/22 08:25 10/30/22 12:00 10/30/22 08:00 10/30/22 08:00 10/30/22 08:00 10/30/22 08:00 10/30/22 08:00 10/30/22 07:30 10/30/22 07:00 10/30/22 07:00 10/30/22 05:45 10/30/22 05:45 10/30/22 05:30 10/30/22 05:30 10/30/22 05:15 10/30/22 05:15 10/30/22 05:00 10/30/22 05:00 10/30/22 04:45 10/30/22 04:45 10/30/22 04:30 10/30/22 04:30 10/30/22 04:15 10/30/22 04:15 10/30/22 04:00 10/30/22 04:00 10/30/22 03:46 10/30/22 03:46 10/30/22 03:30 10/30/22 03:30 10/30/22 03:15 10/30/22 03:15 10/30/22 03:00 10/30/22 03:00 10/30/22 02:45 10/30/22 02:45 10/30/22 02:30 10/30/22 02:30 10/30/22 02:15 10/30/22 02:15 10/30/22 02:00 10/30/22 02:00 10/30/22 01:45 10/30/22 01:45 10/30/22 01:30 10/30/22 01:30 10/30/22 01:15 10/30/22 01:15 10/30/22 02:14 40 Laboratory Results Short CBC 10/29/22 10/30/22 Range/Units 17:36 04:11 WBC 9.61 9.90 (4.8-10.8) K/ul Hgb 14.5 14.3 (12.0-16.0) g/dl Hct 44.4 42.7 (37.0-47.0) % Plt Count 273 233 (130-400) K/uL BMP 10/29/22 10/30/22 17:36 04:11 Sodium 137 140 Potassium 4.7 4.4 Chloride 102 102 Carbon Dioxide 28 31 BUN 20 19 Creatinine 0.93 0.76 Glucose 287 H 152 H Calcium 8.9 8.9 Cardiac Enzymes 10/29/22 Range/Units 17:36 Total Creatine Kinase 113 (26-192) U/L Liver Function 10/29/22 Range/Units 17:36 Total Bilirubin 0.7 (0.2-1.0) mg/dl AST 38 (13-39) U/L ALT 45 (7-52) U/L Alkaline Phosphatase 87 (34-104) U/L Albumin 4.2 (3.4-5.0) gm/dl
[2022-10-30 15:12] LABS: BUN Creatinine Ratio 20.2 (10-20); Calcium 8.8 mg/dl (8.6-10.3); Creatinine Clr Calc Pharmacy 63.9 ml/min; Est GFR (African American) 70.3 ml/min; Est GFR (Non-African American) 60.6 ml/min; Magnesium 1.9 mg/dl (1.7-2.4); Potassium 3.5 mmol/L (3.5-5.1)
--- NOTE | 2022-10-30 15:58 | Electrocardiogram Report ---
Test Reason : Blood Pressure : / mmHG Vent. Rate : 084 BPM Atrial Rate : 084 BPM P-R Int : 174 ms QRS Dur : 092 ms QT Int : 386 ms P-R-T Axes : 065 047 102 degrees QTc Int : 456 ms Normal sinus rhythm Inferior infarct , possibly acute Anterior infarct , age undetermined T wave abnormality, consider lateral ischemia ACUTE [place] / STEMI Abnormal ECG No previous ECGs available Confirmed by Flaco Joy ([id number]) on 10/30/2022 3:57:42 PM Referred By: REFERRED SELF Confirmed By:Flaco Joy
--- NOTE | 2022-10-30 16:09 | Electrocardiogram Report ---
Test Reason : Blood Pressure : / mmHG Vent. Rate : 078 BPM Atrial Rate : 078 BPM P-R Int : 170 ms QRS Dur : 088 ms QT Int : 384 ms P-R-T Axes : 057 -09 148 degrees QTc Int : 437 ms Normal sinus rhythm Inferior infarct (cited on or before 29-OCT-2022) Anterolateral infarct (cited on or before 29-OCT-2022) Abnormal ECG When compared with ECG of 29-OCT-2022 17:32, (unconfirmed) Serial changes of evolving Inferior infarct Present Confirmed by Flaco Joy ([id number]) on 10/30/2022 4:08:58 PM Referred By: REFERRED SELF Confirmed By:Flaco Joy
[2022-10-30] MEDS ORDERED: POTASSIUM CHLORIDE CRTAB 20 MEQ TABCR PO STA (17:47)
[2022-10-30] MEDS: LANTUS PER UNIT CHARGE SQ SCH (21:18)
[2022-10-30] MEDS: ROSUVASTATIN CALCIUM 5 MG TAB PO SCH (21:19)
[2022-10-31 05:35] LABS: Basophils # (auto) 0.04 K/uL (0-0.2); Basophils % (auto) 0.4 %; Eosinophils # (auto) 0.33 K/uL (0-0.50); Eosinophils % (auto) 3.3 %; Hematocrit (blood only) 43.7 % (37.0-47.0); Hemoglobin 14.4 g/dl (12.0-16.0); Immature Granulocytes # (auto) 0.03 K/uL (0.01-0.20); Immature Granulocytes % (auto) 0.3 %; Lymphocytes # (auto) 2.07 K/uL (1.2-3.4); Lymphocytes % (auto) 20.6 %; Mean Corpuscular Hemoglobin 28.5 pg (25.0-34.0); Mean Corpuscular Volume 86.5 fL (80.0-100.0); Mean Platelet Volume 11.1 fL (9.4-12.4); Monocytes # (auto) 0.77 K/uL (0.11-0.59); Monocytes % (auto) 7.7 %; Neutrophils # (auto) 6.82 K/uL (1.40-6.50); Neutrophils % (auto) 67.7 %; Platelet Count 220 K/uL (130-400); RDW Coefficient of Variation 13.3 % (11.5-14.5); RDW Standard Deviation 41.6 fL (36.4-46.3); Red Blood Count 5.05 M/uL (4.20-5.40); White Blood Count 10.06 K/ul (4.8-10.8)
[2022-10-31 06:11] LABS: BUN Creatinine Ratio 27.9 (10-20); Calcium 8.8 mg/dl (8.6-10.3); Creatinine Clr Calc Pharmacy 92.9 ml/min; Est GFR (African American) 107.9 ml/min; Est GFR (Non-African American) 93.1 ml/min; Phosphorus 3.4 mg/dl (2.5-4.9); Potassium 4.4 mmol/L (3.5-5.1)
[2022-10-31] MEDS: INSULIN ASPART PER UNIT CHARGE SC SCH ×4 (07:49→20:20)
--- NOTE | 2022-10-31 07:49 | Cardiology Progress Note ---
Date of Service October 31, 2022 Assessment & Plan (1) Acute ST elevation myocardial infarction (STEMI): (2) Ischemic cardiomyopathy: (3) Acute on chronic heart failure with reduced ejection fraction and diastolic dysfunction: (4) CAD (coronary artery disease): (5) HLD (hyperlipidemia): (6) Benign essential HTN: Plan See Attending enroute controller documentation for recommendations and further plan of care. Admission and Anticipated Discharge Date Admission Date: October 29, 2022 Supervising Physician Co-Signing Physician Notes Attending Staff: Pt seen and evaluated with AP Staff. Concur with observations and plans 62 yo woman presented with chest pain and dyspnea DX: Inferior STEMI Pt was taken emergently to the laborer/key man Multivessel CAD LAD - 100% ostial with collaterals LCX- 20-30% - distal 70% RCA - 98% distal; PCI with JESSENIA to RCA Bedside ECHO LVEF 20-25% Worsening dyspnea during cath Required BIPAP + IV Lasix ECHOcardiogram: 10/30/2022 LVEF 15-20% Diffuse HK Mild MR Dilated IVC Plans: * S/P IMI * S/P PCI with JESSENIA to RCA * Continue ASA 81 mg po per day * Continue Brilinta 90 mg po BID * Multivessel CAD - * Outpt consideration for surgical revascularization * May need viability given that LAD territory may be "scarred" * LVEF <20% * Bout of acute combined CHF on presentation - improving * SBP 118 mmHg * Continue Aldactone 25 mg po per day * STOP Losartan 25 mg po per day * Start Entresto 24/26 mg po BID * Lasix 40 mg IV x 1 on 10/31/2022 * K+ 4.5-5 * Mag goal >2 * Continue Toprol XL 12.5 mg po per day * LDL 89 * Statin intolerance reported - myalgias * Continue Crestor 5 mg po per day * Continue Zetia 10 mg po per day * May need PCSK9 * Diabetes control * Cardiac rehab * Nonsmoker * Consider transfer to [facility] Subjective Events Overnight: * None reported * No telemetry events * Troponin trending down Subjective: * Breathing is improved Review of Systems Review of Systems: All systems reviewed & are unremarkable except as noted in HPI & below Physical Exam Physical Exam: PE: JVP @ base of Neck S1S2 2/6 systolic murmur (soft) +S4 CTA B No C/C/E - extremities warm and well-perfused + Femoral Line -out - No bruit in right groin Results & Data Vital Signs (Past 12 Hours) Vital Signs Temp Pulse Resp BP Pulse Ox O2 Del Method O2 Flow Rate 10/31/22 07:00 89 13 91 10/31/22 07:00 118/76 10/31/22 06:00 90 14 10/31/22 05:00 98 H 13 93 10/31/22 05:00 110/66 10/31/22 04:00 93 H 18 94 10/31/22 04:00 105/68 10/31/22 03:01 134/82 10/31/22 03:01 89 16 96 10/31/22 03:00 106 H 26 H 93 10/31/22 05:01 36.8 C 10/31/22 02:00 90 21 95 10/31/22 02:00 104/68 10/31/22 01:00 128/84 10/31/22 01:00 86 18 97 10/31/22 00:00 82 19 96 10/31/22 00:00 94/55 L 10/30/22 23:00 86 16 10/30/22 22:00 87 13 96 10/30/22 22:00 95/72 L 10/30/22 21:00 88 31 H 96 10/30/22 21:00 108/68 10/31/22 01:01 36.7 C 10/31/22 00:00 93 H 10/30/22 21:34 Nasal Cannula 2 10/30/22 20:00 92 H 21 94 10/30/22 20:00 116/78 Laboratory Results Cardiac Enzymes 10/30/22 10/30/22 Range/Units 09:38 14:29 Troponin I High Sens 04221.8 H* D 03788.5 H* D (0-14) pg/ml CBC 10/31/22 Range/Units 04:49 WBC 10.06 (4.8-10.8) K/ul RBC 5.05 (4.20-5.40) M/uL Hgb 14.4 (12.0-16.0) g/dl Hct 43.7 (37.0-47.0) % Plt Count 220 (130-400) K/uL Neut # (Auto) 6.82 H (1.40-6.50) K/uL Lymph # (Auto) 2.07 (1.2-3.4) K/uL [place] # (Auto) 0.77 H (0.11-0.59) K/uL Eos # (Auto) 0.33 (0-0.50) K/uL Baso # (Auto) 0.04 (0-0.2) K/uL Comprehensive Metabolic Panel 10/30/22 10/31/22 Range/Units 14:29 04:49 Sodium 139 139 (136-145) mmol/L Potassium 3.5 D 4.4 D (3.5-5.1) mmol/L Chloride 100 104 (98-107) mmol/L Carbon Dioxide 32 28 (21-32) mmol/L BUN 20 19 (6-23) mg/dl Creatinine 0.99 0.68 D (0.6-1.2) mg/dl Glucose 217 H 168 H (70-99(Fasting)) mg/dl Calcium 8.8 8.8 (8.6-10.3) mg/dl Intake and Output 10/30/22 10/31/22 10/31/22 22:59 06:59 14:59 Intake Total 790 / 1820 900 / 1820 Output Total 115 / 1400 Balance 675 / 420 900 / 420 Intake: Oral 790 / 1720 900 / 1720 Output: Urine 0 / 0 Urine Amount (Catheter) 115 / 1400 [place]/Indwelling 115 / 1400 Other: # Unmeasured Voids 1 1 Weight 88.2 kg Weight Measurement Method Built in [facility] Medications Administered Current Inpatient Medications Acetaminophen (Acetaminophen 325 Mg Tab) 650 mg PO Q4H PRN PRN Reason: MILD Pain (Scale 1,2,3) Stop: 11/28/22 19:34 Last Admin: 10/30/22 05:22 Dose: 650 mg Aspirin (Aspirin 81 Mg Ectab) [facility] [place] Stop: 11/29/22 08:59 Last Admin: 10/31/22 08:41 Dose: 81 mg Dextrose (Dextrose 50% 50 Ml Syringe) 25 - 50 ml IV UD PRN; Protocol PRN Reason: Hypoglycemia Protocol Stop: 11/28/22 20:23 Ezetimibe (Ezetimibe 10 Mg Tab) [facility] [place] Stop: 11/29/22 09:44 Last Admin: 10/31/22 08:41 Dose: 10 mg Glucagon (Glucagon For Inj 1 Mg Vial) 1 mg SQ UD PRN; Protocol PRN Reason: Hypoglycemia Protocol Stop: 11/28/22 20:23 Glucose (Glucose 10 Tab/Tube) 4 - 8 tab PO UD PRN; Protocol PRN Reason: Hypoglycemia Treatment Stop: 11/28/22 20:23 Glucose (Glucose 40% Gel 15 Gm Tube) 15 - 30 gm PO UD PRN; Protocol PRN Reason: Hypoglycemia Protocol Stop: 11/28/22 20:23 Insulin Aspart (Insulin Aspart Per Unit Charge) 0 units SC ACHS [facility] Stop: 11/28/22 20:59 Last Admin: 10/31/22 07:49 Dose: 5 units Insulin Glargine (Lantus Per Unit Charge) 12 units SQ HS [facility] Stop: 11/28/22 20:59 Last Admin: 10/30/22 21:18 Dose: 12 units Losartan Potassium (Losartan Potassium 25 Mg Tab) 25 mg PO QAM [facility] Stop: 11/29/22 08:59 Last Admin: 10/31/22 08:41 Dose: 25 mg Metoprolol Succinate (Metoprolol Succ 25mg Ext Rel Tab) 12.5 mg [facility] [place] Stop: 11/30/22 08:59 Last Admin: 10/31/22 08:40 Dose: 12.5 mg Miscellaneous (Carbohydrates For Hypoglycemia ) 15 - 30 gm PO UD PRN PRN Reason: Hypoglycemia Protocol Stop: 11/28/22 20:23 Ondansetron HCl (Ondansetron Inj 2 Mg/Ml 2 Ml Vial) 4 mg IV Q6H PRN PRN Reason: Nausea And Vomiting Stop: 11/28/22 19:34 Last Admin: 10/30/22 01:42 Dose: 4 mg Rosuvastatin Calcium (Rosuvastatin Calcium 5 Mg Tab) 5 mg PO QPM [facility] Stop: 11/29/22 20:59 Last Admin: 10/30/22 21:19 Dose: 5 mg Spironolactone (Spironolactone 25 Mg Tab) 25 mg PO QAM [facility] Stop: 11/29/22 09:44 Last Admin: 10/31/22 08:41 Dose: 25 mg Ticagrelor (Ticagrelor 90 Mg Tab) 90 mg PO BID [facility] Stop: 11/29/22 08:59 Last Admin: 10/31/22 08:41 Dose: 90 mg
[2022-10-31] MEDS: METOPROLOL SUCC 25MG EXT REL TAB PO SCH (08:40)
[2022-10-31] MEDS: ASPIRIN 81 MG ECTAB PO SCH (08:41)
[2022-10-31] MEDS: LOSARTAN POTASSIUM 25 MG TAB PO SCH (08:41)
[2022-10-31] MEDS: TICAGRELOR 90 MG TAB PO SCH ×2 (08:41→20:15)
[2022-10-31] MEDS: SPIRONOLACTONE 25 MG TAB PO SCH (08:41)
[2022-10-31] MEDS: EZETIMIBE 10 MG TAB PO SCH (08:41)
--- NOTE | 2022-10-31 09:32 | Critical Care Progress Note ---
Date of Service October 31, 2022 Assessment & Plan (1) Acute ST elevation myocardial infarction (STEMI): Plan: Reason Critically Ill: 62-year-old female presents to the ICU following inferior ST elevation IN requiring PCI with JESSENIA x1 to the RCA. Patient also exhibited respiratory failure and requiring BiPAP and undergoing diuresis. Patient found in cath to have severe CAD and will likely need CABG in the future. Neuro - [facility] ICU: Negative Depressioncontinue sertraline Cardiac - STEMIinferior STEMI, now s/p PCI with JESSENIA x1 to the RCA -Noted to have severe CAD, and will likely need CABG in the future -TTE pending -ASA, BB, Brilinta, losartan (previously statin intolerant) Respiratory - Acute hypercapnic respiratory failureresolved on room air -no NIV overnight. Advocate for LAURA evaluation as outpatient GI - Heart Healthy diet RENAL/LYTES - Creatinine within normal limits. Monitor routine BMPs and replete electrolytes as indicated - Foleystrict I's and O's ENDO - DM type IIhold Trulicity in favor of sliding scale. ICU hyperglycemic protocol HEME - H&H stable, monitor routine CBC ID - No indication for vasopressors at this LINES/IV ACCESS - Peripheral IVs DVT PROPHYLAXIS - SCDs Stable for downgrade out of ICU (2) Respiratory failure with hypercapnia: (3) HLD (hyperlipidemia): (4) CAD (coronary artery disease): (5) DM II (diabetes mellitus, type II), controlled: (6) Benign essential HTN: Admission and Anticipated Discharge Date Admission Date: October 29, 2022 Subjective No complaints. Feels better than yesterday Physical Exam Physical Exam: General: Alert. nontoxic. Skin: Warm, dry, Head: Atraumatic Ears, nose, mouth and throat: airway patent Cardiovascular: Normal peripheral perfusion Respiratory: no respiratory distress Gastrointestinal: Non distended Musculoskeletal: No deformity Results & Data Results & Data Vital Signs (Past 12 Hours) Vital Signs Temp Pulse Resp BP Pulse Ox O2 Del Method O2 Flow Rate 10/31/22 07:00 89 13 91 10/31/22 07:00 118/76 10/31/22 06:00 90 14 10/31/22 05:00 98 H 13 93 10/31/22 05:00 110/66 10/31/22 04:00 93 H 18 94 10/31/22 04:00 105/68 10/31/22 03:01 134/82 10/31/22 03:01 89 16 96 10/31/22 03:00 106 H 26 H 93 10/31/22 05:01 36.8 C 10/31/22 02:00 90 21 95 10/31/22 02:00 104/68 10/31/22 01:00 128/84 10/31/22 01:00 86 18 97 10/31/22 00:00 82 19 96 10/31/22 00:00 94/55 L 10/30/22 23:00 86 16 10/30/22 22:00 87 13 96 10/30/22 22:00 95/72 L 10/31/22 01:01 36.7 C 10/31/22 00:00 93 H 10/30/22 21:34 Nasal Cannula 2 Coding Level of Care Code 35499 SUB INP/OBS CARE 2/35MIN Diagnoses Acute ST elevation myocardial infarction (STEMI) I21.3 Respiratory failure with hypercapnia J96.92 HLD (hyperlipidemia) E78.5 CAD (coronary artery disease) I25.10 DM II (diabetes mellitus, type II), controlled E11.9 Benign essential HTN I10
[2022-10-31] MEDS ORDERED: FUROSEMIDE 40 MG/4 ML VIAL IV ONE (10:33)
--- NOTE | 2022-10-31 12:27 | Hospitalist Progress Note ---
Date of Service October 31, 2022 Assessment & Plan (1) Acute ST elevation myocardial infarction (STEMI): (2) DM II (diabetes mellitus, type II), controlled: (3) Benign essential HTN: (4) Obesity (BMI 30.0-34.9): (5) HLD (hyperlipidemia): Plan Patient is a 62-year-old female who presented to the ED with severe chest pain. Heart alert was called in the ED. Patient underwent RCA stent placement. She was also found to have severe multivessel disease. She was admitted to ICU following the procedure. STEMI Ischemic cardiomyopathy Multivessel coronary artery disease Acute on chronic systolic and diastolic heart failure Pulmonary edema secondary to above Acute respiratory failure with hypoxia, hypercarbia --S/P drug-eluting stent to RCA --CXR:Cardiomegaly with progressively worsened pulmonary edema. Small pleural effusions. --ECHO: Left ventricle is mildly dilated. Severe diffuse hypokinesis 2 calluses with sparing of the inferior wall at basal and mid segments and sparing of the basal anteroseptal segment. Left ventricle systolic function is severely reduced. EF 15 to 20%. Mild mitral regurgitation. Dilated inferior vena cava with reduced compressibility, suggestive of right atrial pressure of 15 mmHg. -- Lipid panel:T, total cholesterol 157, only LDL 89, HDL 31 -- Continue supplemental oxygen as needed. Wean as tolerated. Lasix 40 mg IV once. --On DAPT with aspirin and Brilinta. Toprol 12.5 mg once a day, on Aldactone and to be started on Entresto. Stop losartan. --Started on Zetia, low-dose rosuvastatin given history of statin intolerance Transfer out of ICU. DM II HbA1c 8.0 Continue insulin while hospitalized Monitor BGs Hypertension Continue metoprolol, Entresto and Aldactone. Monitor H/O dyslipidemia History of statin intolerance Started on Zetia, low dose rosuvastatin as above DVT Px: Heparin Code Status Full Code Time spent evaluating patient, direct bedside care, chart review, placing orders, interpretation of diagnostic studies, discussion with consultants, patient, and family members, as well as other required patient management activities is 60 minutes. Please note the above document was generated using voice recognition software. It may contain grammatical, syntax or spelling errors. Any formal questions or concerns about the content, text or information contained within the body of this dictation should be directly addressed to the provider for clarification Admission and Anticipated Discharge Date Admission Date: October 29, 2022 Subjective Patient seen and examined at bedside. She is comfortably lying down on the bed. Review of Systems Review of Systems: All systems reviewed & are unremarkable except as noted in Subjective Physical Exam Physical Exam: Physical Exam: Vitals signs as noted above General Appearance:Moderately built and nourished, no apparent distress Head: normocephalic, Atraumatic Eyes: normal inspection, EOMI Neck: supple, Trachea midline Respiratory/Chest: Decreased breath sounds, CTA, No accessory muscle use Cardiovascular: S1, S2, No murmur Abdomen/GI:Soft, Non tender, Bowel sounds present Extremities/Musculoskeletal:normal inspection, Trace pedal edema Neurologic/Psych:AAOX3, grossly no focal neurological deficits Skin: normal color, warm Results & Data Results & Data Vital Signs (Past 12 Hours) Vital Signs Temp Pulse Resp BP Pulse Ox 10/31/22 08:00 36.8 C 10/31/22 08:00 92 H 10/31/22 07:00 89 13 91 10/31/22 07:00 118/76 10/31/22 06:00 90 14 10/31/22 05:00 98 H 13 93 10/31/22 05:00 110/66 10/31/22 04:00 93 H 18 94 10/31/22 04:00 105/68 10/31/22 03:01 134/82 10/31/22 03:01 89 16 96 10/31/22 03:00 106 H 26 H 93 10/31/22 05:01 36.8 C 10/31/22 02:00 90 21 95 10/31/22 02:00 104/68 10/31/22 01:00 128/84 10/31/22 01:00 86 18 97 10/31/22 01:01 36.7 C Laboratory Results Laboratory Results WBC 10.06 K/ul (4.8-10.8) 10/31/22 04:49 RBC 5.05 M/uL (4.20-5.40) 10/31/22 04:49 Hgb 14.4 g/dl (12.0-16.0) 10/31/22 04:49 POC Hgb 13.9 g/dl (12.0-16.0) 10/29/22 19:05 Hct 43.7 % (37.0-47.0) 10/31/22 04:49 POC Hct 41 % (37-47) 10/29/22 19:05 MCV 86.5 fL (80.0-100.0) 10/31/22 04:49 MCH 28.5 pg (25.0-34.0) 10/31/22 04:49 MCHC 33.0 g/dL (32.0-36.0) 10/31/22 04:49 RDW Std Deviation 41.6 fL (36.4-46.3) 10/31/22 04:49 RDW Coeff of Moni 13.3 % (11.5-14.5) 10/31/22 04:49 Plt Count 220 K/uL (130-400) 10/31/22 04:49 MPV 11.1 fL (9.4-12.4) 10/31/22 04:49 Immature Gran % (Auto) 0.3 % 10/31/22 04:49 Neut % (Auto) 67.7 % 10/31/22 04:49 Lymph % (Auto) 20.6 % 10/31/22 04:49 [place] % (Auto) 7.7 % 10/31/22 04:49 Eos % (Auto) 3.3 % 10/31/22 04:49 Baso % (Auto) 0.4 % 10/31/22 04:49 Neut # (Auto) 6.82 K/uL (1.40-6.50) H 10/31/22 04:49 Lymph # (Auto) 2.07 K/uL (1.2-3.4) 10/31/22 04:49 [place] # (Auto) 0.77 K/uL (0.11-0.59) H 10/31/22 04:49 Eos # (Auto) 0.33 K/uL (0-0.50) 10/31/22 04:49 Baso # (Auto) 0.04 K/uL (0-0.2) 10/31/22 04:49 Immature Gran # (Auto) 0.03 K/uL (0.01-0.20) 10/31/22 04:49 PT 11.2 Seconds (9.0-12.0) 10/29/22 17:36 INR 1.0 (0.9-1.1) 10/29/22 17:36 APTT 27.6 Seconds (21.0-31.0) 10/29/22 17:36 PTT Ratio 1.0 10/29/22 17:36 Activ Coag Time Kaolin 257 SECONDS (94-140) H 10/29/22 18:33 POC pH 7.29 (7.35-7.45) L 10/29/22 19:05 POC pCO2 55 mmHg (35-46) H 10/29/22 19:05 POC pO2 176 mmHg (80-95) H 10/29/22 19:05 POC HCO3 27 [place]/L (19-24) H 10/29/22 19:05 POC Total CO2 28 mmol/L (24-31) 10/29/22 19:05 POC Base Excess 0.0 [place]ul[place]/L (-9-1.8) 10/29/22 19:05 POC ABG O2 Sat 99.0 % (90-95) H 10/29/22 19:05 POC Sodium 140 mmol/L (135-144) 10/29/22 19:05 Sodium 139 mmol/L (136-145) 10/31/22 04:49 POC Potassium 3.8 mmol/L (3.3-5.0) 10/29/22 19:05 Potassium 4.4 mmol/L (3.5-5.1) D 10/31/22 04:49 POC Chloride 103 mmol/L (101-112) 10/29/22 17:53 Chloride 104 mmol/L (98-107) 10/31/22 04:49 Carbon Dioxide 28 mmol/L (21-32) 10/31/22 04:49 POC Total CO2 23 mmol/L (24-31) L 10/29/22 17:53 Anion Gap 7 (3-11) 10/31/22 04:49 POC Anion Gap 18.0 mmol/L (16-25) 10/29/22 17:53 POC BUN 20 mg/dl (7-18) H 10/29/22 17:53 BUN 19 mg/dl (6-23) 10/31/22 04:49 Creatinine 0.68 mg/dl (0.6-1.2) D 10/31/22 04:49 POC Creatinine 0.9 mg/dl (0.6-1.3) 10/29/22 17:53 Est Cr Clr Drug Dosing 92.9 ml/min 10/31/22 04:49 Est GFR ( Amer) 107.9 ml/min 10/31/22 04:49 Est GFR (Non-Af Amer) 93.1 ml/min 10/31/22 04:49 BUN/Creatinine Ratio 27.9 (10-20) H 10/31/22 04:49 Glucose 168 mg/dl (70-99(Fasting)) H 10/31/22 04:49 POC Glucose 126 mg/dl (70-99) H 10/31/22 11:34 POC Glucose (other) 286 mg/dl (70-99) H 10/29/22 17:53 Estimat Average Glucose 183 mg/dl 10/30/22 04:11 Hemoglobin A1c 8.0 % (4.5-5.6) H 10/30/22 04:11 Calcium 8.8 mg/dl (8.6-10.3) 10/31/22 04:49 POC Ioniz Calcium Sath[place] 1.08 mmol/l (1.12-1.32) L 10/29/22 17:53 Phosphorus 3.4 mg/dl (2.5-4.9) 10/31/22 04:49 Magnesium 2.0 mg/dl (1.7-2.4) 10/31/22 04:49 Total Bilirubin 0.7 mg/dl (0.2-1.0) 10/29/22 17:36 AST 38 U/L (13-39) 10/29/22 17:36 ALT 45 U/L (7-52) 10/29/22 17:36 Alkaline Phosphatase 87 U/L (34-104) 10/29/22 17:36 Total Creatine Kinase 113 U/L (26-192) 10/29/22 17:36 Troponin I High Sens 67329.5 pg/ml (0-14) H* D 10/30/22 14:29 B-Natriuretic Peptide 1195 pg/ml (0-100) H 10/29/22 17:40 Total Protein 6.9 gm/dl (6.0-8.3) 10/29/22 17:36 Albumin 4.2 gm/dl (3.4-5.0) 10/29/22 17:36 Globulin 2.7 gm/dl (2.5-4.0) 10/29/22 17:36 Albumin/Globulin Ratio 1.6 (0.9-2) 10/29/22 17:36 Triglycerides 185 mg/dl (0-150) H 10/30/22 04:11 Cholesterol 157 mg/dl (0-200) 10/30/22 04:11 LDL Cholesterol, Calc 89 mg/dl 10/30/22 04:11 VLDL Cholesterol, Calc 37 mg/dl (0-30) H 10/30/22 04:11 HDL Cholesterol 31 mg/dl 10/30/22 04:11 Cholesterol/HDL Ratio 5.1 (0-5) H 10/30/22 04:11 Lipase 52 U/L (11-82) 10/29/22 17:36 TSH 3.155 uIu/ml (0.300-4.500) 10/29/22 17:36 Nasal Screen MRSA (PCR) Negative (Negative) 10/29/22 20:00 SARS-CoV-2, RNA, NAAT NEGATIVE (NEGATIVE) 10/29/22 17:47 Impressions Chest X-Ray 10/30/22 09:34 XR chest 1V portable HISTORY: 62 years-old Female CHF; pleural effusions acute shortness of breath COMPARISON: 10/29/2022 TECHNIQUE: AP view of the chest FINDINGS: Cardiac silhouette is enlarged. Progressive pulmonary edema. No pneumothorax. Small pleural effusions with mild bibasilar densities. Bones appear grossly intact. IMPRESSION: 1. Cardiomegaly with progressively worsened pulmonary edema. 2. Small pleural effusions. ACT 112: Negative or not required by law. The above report was generated using voice recognition software. It may contain grammatical, syntax or spelling errors. Electronically signed by: Antione Rubin M.D. 10/30/2022 10:16 AM
[2022-10-31] MEDS: SERTRALINE HCL 100 MG TABLET PO SCH (13:16)
[2022-10-31] MEDS: CHOLECALCIFEROL 5,000 UNITS 125 MCG TAB PO SCH (13:17)
[2022-10-31] MEDS: HEPARIN SOD 5,000 UNIT/0.5 ML VIAL SQ SCH ×2 (13:19→20:16)
[2022-10-31] MEDS: VALSARTAN/SACUBITRIL 26/24MG TAB PO SCH (20:15)
[2022-10-31] MEDS: ROSUVASTATIN CALCIUM 5 MG TAB PO SCH (20:15)
[2022-10-31] MEDS: LANTUS PER UNIT CHARGE SQ SCH (20:20)
[2022-11-01 05:01] LABS: Basophils # (auto) 0.04 K/uL (0-0.2); Basophils % (auto) 0.5 %; Eosinophils # (auto) 0.28 K/uL (0-0.50); Eosinophils % (auto) 3.4 %; Hematocrit (blood only) 43.8 % (37.0-47.0); Hemoglobin 14.6 g/dl (12.0-16.0); Immature Granulocytes # (auto) 0.01 K/uL (0.01-0.20); Immature Granulocytes % (auto) 0.1 %; Lymphocytes # (auto) 2.27 K/uL (1.2-3.4); Lymphocytes % (auto) 27.2 %; Mean Corpuscular Hemoglobin 28.1 pg (25.0-34.0); Mean Corpuscular Hgb Conc 33.3 g/dL (32.0-36.0); Mean Corpuscular Volume 84.4 fL (80.0-100.0); Monocytes % (auto) 8.4 %; Neutrophils # (auto) 5.05 K/uL (1.40-6.50); Neutrophils % (auto) 60.4 %; Platelet Count 228 K/uL (130-400); RDW Standard Deviation 39.5 fL (36.4-46.3); Red Blood Count 5.19 M/uL (4.20-5.40); White Blood Count 8.35 K/ul (4.8-10.8)
[2022-11-01 05:09] LABS: BUN Creatinine Ratio 19.7 (10-20); Calcium 9.2 mg/dl (8.6-10.3); Est GFR (African American) 105.1 ml/min; Est GFR (Non-African American) 90.7 ml/min; Phosphorus 3.2 mg/dl (2.5-4.9); Potassium 3.9 mmol/L (3.5-5.1)
[2022-11-01] MEDS: HEPARIN SOD 5,000 UNIT/0.5 ML VIAL SQ SCH (06:04)
--- NOTE | 2022-11-01 08:19 | Cardiology Progress Note ---
Date of Service November 01, 2022 Assessment & Plan (1) Acute ST elevation myocardial infarction (STEMI): (2) Ischemic cardiomyopathy: (3) Acute on chronic heart failure with reduced ejection fraction and diastolic dysfunction: (4) CAD (coronary artery disease): (5) HLD (hyperlipidemia): (6) Benign essential HTN: Plan See Attending clay dry press operator documentation for recommendations and further plan of care. Admission and Anticipated Discharge Date Admission Date: October 29, 2022 Supervising Physician Co-Signing Physician Notes Attending Staff: Pt seen and evaluated with [facility] Staff. Concur with observations and plans 62 yo woman presented with chest pain and dyspnea DX: Inferior STEMI Pt was taken emergently to the cathode ray tube salvage processor Multivessel CAD LAD - 100% ostial with collaterals LCX- 20-30% - distal 70% RCA - 98% distal; PCI with JESSENIA to RCA Bedside ECHO LVEF 20-25% Worsening dyspnea during cath Required BIPAP + IV Lasix ECHOcardiogram: 10/30/2022 LVEF 15-20% Diffuse HK Mild MR Dilated IVC Plans: * S/P IMI * S/P PCI with JESSENIA to RCA * Continue ASA 81 mg po per day * Continue Brilinta 90 mg po BID * Multivessel CAD - * Outpt consideration for surgical revascularization * May need viability given that LAD territory may be "scarred" * LVEF <20% * Bout of acute combined CHF on presentation - improving * SBP 102 mmHg * Continue Aldactone 25 mg po per day * Losartan 25 mg po per day (OFF) * Continue Entresto 24/26 mg po BID * Lasix 40 mg IV (OFF) * Start Lasix 40 mg po per day * K+ 4.5-5 * Mag goal >2 * Continue Toprol XL 12.5 mg po per day * LDL 89 * Statin intolerance reported - myalgias * Continue Crestor 5 mg po per day * Continue Zetia 10 mg po per day * May need PCSK9 * Diabetes control * Cardiac rehab * Nonsmoker * Please arrange follow up with [facility] @ [facility] * Please call with any additional questions Tyree Zhu Subjective Events Overnight: * No events on telemetry Subjective: * No chest pain Review of Systems Review of Systems: All systems reviewed & are unremarkable except as noted in HPI & below Physical Exam Physical Exam: PE: JVP @ base of Neck S1S2 2/6 systolic murmur (soft) +S4 CTA B No C/C/E - extremities warm and well-perfused + Femoral Line -out - No bruit in right groin Results & Data Vital Signs (Past 12 Hours) Vital Signs Temp Pulse Pulse Resp BP Pulse Ox O2 Del Method 11/01/22 07:58 98 H 11/01/22 07:44 36.6 C 91 H 17 102/66 92 Room Air 11/01/22 04:00 36.8 C 91 H 16 92/80 L 94 Room Air 11/01/22 00:00 100 H 11/01/22 00:00 36.7 C 84 16 98/80 L 94 Room Air Laboratory Results CBC 11/01/22 Range/Units 04:12 WBC 8.35 (4.8-10.8) K/ul RBC 5.19 (4.20-5.40) M/uL Hgb 14.6 (12.0-16.0) g/dl Hct 43.8 (37.0-47.0) % Plt Count 228 (130-400) K/uL Neut # (Auto) 5.05 (1.40-6.50) K/uL Lymph # (Auto) 2.27 (1.2-3.4) K/uL [place] # (Auto) 0.70 H (0.11-0.59) K/uL Eos # (Auto) 0.28 (0-0.50) K/uL Baso # (Auto) 0.04 (0-0.2) K/uL Comprehensive Metabolic Panel 11/01/22 Range/Units 04:12 Sodium 138 (136-145) mmol/L Potassium 3.9 (3.5-5.1) mmol/L Chloride 103 (98-107) mmol/L Carbon Dioxide 28 (21-32) mmol/L BUN 14 (6-23) mg/dl Creatinine 0.71 (0.6-1.2) mg/dl Glucose 134 H (70-99(Fasting)) mg/dl Calcium 9.2 (8.6-10.3) mg/dl Intake and Output 10/31/22 11/01/22 11/01/22 22:59 06:59 14:59 Intake Total 440 / 1660 200 / 1660 Output Total 1250 / 1850 600 / 1850 Balance -810 / -190 -400 / -190 Intake: Oral 440 / 1660 200 / 1660 Output: Urine 1250 / 1850 600 / 1850 Other: Weight 84.7 kg Weight Measurement Method Built in Bedscale Medications Administered Current Inpatient Medications Acetaminophen (Acetaminophen 325 Mg Tab) 650 mg PO Q4H PRN PRN Reason: MILD Pain (Scale 1,2,3) Stop: 11/28/22 19:34 Last Admin: 10/30/22 05:22 Dose: 650 mg Aspirin (Aspirin 81 Mg Ectab) [facility] Stop: 11/29/22 08:59 Last Admin: 10/31/22 08:41 Dose: 81 mg Dextrose (Dextrose 50% 50 Ml Syringe) 25 - 50 ml IV UD PRN; Protocol PRN Reason: Hypoglycemia Protocol Stop: 11/28/22 20:23 Ezetimibe (Ezetimibe 10 Mg Tab) [facility] [place] Stop: 11/29/22 09:44 Last Admin: 10/31/22 08:41 Dose: 10 mg Glucagon (Glucagon For Inj 1 Mg Vial) 1 mg SQ UD PRN; Protocol PRN Reason: Hypoglycemia Protocol Stop: 11/28/22 20:23 Glucose (Glucose 10 Tab/Tube) 4 - 8 tab PO UD PRN; Protocol PRN Reason: Hypoglycemia Treatment Stop: 11/28/22 20:23 Glucose (Glucose 40% Gel 15 Gm Tube) 15 - 30 gm PO UD PRN; Protocol PRN Reason: Hypoglycemia Protocol Stop: 11/28/22 20:23 Heparin Sodium (Porcine) (Heparin Sod 5,000 Unit/0.5 Ml Vial) 5,000 units SQ Q8 [facility] Stop: 11/30/22 13:59 Last Admin: 11/01/22 06:04 Dose: 5,000 units Insulin Aspart (Insulin Aspart Per Unit Charge) 0 units SC ACHS [facility] Stop: 11/28/22 20:59 Last Admin: 10/31/22 20:20 Dose: 2 units Insulin Glargine (Lantus Per Unit Charge) 12 units SQ HS [facility] Stop: 11/28/22 20:59 Last Admin: 10/31/22 20:20 Dose: 12 units Metoprolol Succinate (Metoprolol Succ 25mg Ext Rel Tab) 12.5 mg PO QAM [facility] Stop: 11/30/22 08:59 Last Admin: 10/31/22 08:40 Dose: 12.5 mg Miscellaneous (Carbohydrates For Hypoglycemia ) 15 - 30 gm PO UD PRN PRN Reason: Hypoglycemia Protocol Stop: 11/28/22 20:23 Ondansetron HCl (Ondansetron Inj 2 Mg/Ml 2 Ml Vial) 4 mg IV Q6H PRN PRN Reason: Nausea And Vomiting Stop: 11/28/22 19:34 Last Admin: 10/30/22 01:42 Dose: 4 mg Rosuvastatin Calcium (Rosuvastatin Calcium 5 Mg Tab) 5 mg PO QPM [facility] Stop: 11/29/22 20:59 Last Admin: 10/31/22 20:15 Dose: 5 mg Sacubitril/Valsartan (Valsartan/Sacubitril 26/24mg Tab) 1 tab PO BID [facility] Stop: 11/30/22 20:59 Last Admin: 10/31/22 20:15 Dose: 1 tab Sertraline HCl (Sertraline Hcl 100 Mg Tablet) 100 mg PO QAM [facility] Stop: 11/30/22 12:28 Last Admin: 10/31/22 13:16 Dose: 100 mg Spironolactone (Spironolactone 25 Mg Tab) 25 mg PO QAM [facility] Stop: 11/29/22 09:44 Last Admin: 10/31/22 08:41 Dose: 25 mg Ticagrelor (Ticagrelor 90 Mg Tab) 90 mg PO BID [facility] Stop: 11/29/22 08:59 Last Admin: 10/31/22 20:15 Dose: 90 mg Vitamin D (Cholecalciferol 5,000 Units 125 Mcg Tab) 5,000 units PO DAILY [facility] Stop: 11/30/22 12:28 Last Admin: 10/31/22 13:17 Dose: 5,000 units
[2022-11-01] MEDS: INSULIN ASPART PER UNIT CHARGE SC SCH ×2 (08:34→12:25)
[2022-11-01] MEDS: SPIRONOLACTONE 25 MG TAB PO SCH (09:36)
[2022-11-01] MEDS: TICAGRELOR 90 MG TAB PO SCH (09:36)
[2022-11-01] MEDS: METOPROLOL SUCC 25MG EXT REL TAB PO SCH (09:36)
[2022-11-01] MEDS: VALSARTAN/SACUBITRIL 26/24MG TAB PO SCH (09:37)
[2022-11-01] MEDS: EZETIMIBE 10 MG TAB PO SCH (09:37)
[2022-11-01] MEDS: CHOLECALCIFEROL 5,000 UNITS 125 MCG TAB PO SCH (09:37)
[2022-11-01] MEDS: ASPIRIN 81 MG ECTAB PO SCH (09:37)
[2022-11-01] MEDS: SERTRALINE HCL 100 MG TABLET PO SCH (09:37)
[2022-11-01] MEDS ORDERED: FUROSEMIDE 40 MG TAB PO SCH (10:30)
--- NOTE | 2022-11-01 12:51 | Discharge Summary ---
Date of Service November 01, 2022 Admission HPI Per Admitting Provider 62 year old female with history of diabetes type 2 hypertension depression with lower ext edema and exertional dyspnea came to the er with severe crushing chest pain , was a heart alert in the er and was taken for a cardiac cath . Patient had a rca stent placed with severe multi vessel disease. Patient had a transient episode of chd and went into hypercarbic resp failure which quickly responded to bipap. Patient was transferred to ICU and is been monitored overnite. Patient has recieved a dose of brillinta . At time of evaluation in er patient is on a bipap and has no chest pain. She is a full code I spoke to her family at bedside. Admission Exam Per Admitting Provider HEENT:No JVD , Normocephalic , atraumatic CV: S1/S2+ , systolic murmur Resp:on bipap, conducted sounds +. GI: Abdomen soft non tender . Musculoskeletal: examined for joint tenderness. Skin: no rashes Psych: Normal affect Neuro: Patient is awake alert bipap + Ext: no edema. Principal Diagnosis STEMI status post JESSENIA to RCA Discharge Exam Physical Exam: Vitals signs as noted above General Appearance:Moderately built and nourished, no apparent distress Head: normocephalic, Atraumatic Eyes: normal inspection, EOMI Neck: supple, Trachea midline Respiratory/Chest: Decreased breath sounds, CTA, No accessory muscle use Cardiovascular: S1, S2, No murmur Abdomen/GI:Soft, Non tender, Bowel sounds present Extremities/Musculoskeletal:normal inspection, Trace pedal edema Neurologic/Psych:AAOX3, grossly no focal neurological deficits Skin: normal color, warm Discharge Data Allergies Allergy/AdvReac Type Severity Reaction Status Date / Time ceftriaxone Allergy Severe EDEMA Verified 10/29/22 17:49 FACE/LIPS/TONGUE levofloxacin Allergy Severe OLIVAREZ Verified 10/29/22 17:49 ROHIT REACTION AT END OF THERAPY. amoxicillin Allergy Intermediate eyes swell Verified 10/29/22 17:49 shut clavulanic acid Allergy Intermediate EYES SWELL Verified 10/29/22 17:49 SHUT Influenza Virus Vaccines Allergy Intermediate not Verified 11/01/22 10:24 absorbed into system leaves reddened ball sized area latex Allergy Intermediate SKIN Verified 10/29/22 17:49 REDDENED, IRRITATION minocycline Allergy Intermediate HEADACHE/EYES Verified 10/29/22 17:49 PUFFY naproxen Allergy Intermediate hives Verified 10/29/22 17:49 pollen extracts Allergy Intermediate SNEEZING, Verified 10/29/22 17:49 CONGESTION Sulfa (Sulfonamide Allergy Intermediate HIVES/SWELL Verified 10/29/22 17:49 Antibiotics) ING metformin Allergy Unknown upset Verified 10/29/22 17:49 stomach, diarrhea nickel Allergy Unknown UNKNOWN Verified 10/29/22 17:49 bupropion [From Wellbutrin] AdvReac Intermediate FELT LIKE Verified 10/29/22 17:49 PASSING OUT simvastatin AdvReac Intermediate Muscle Pain Verified 10/29/22 17:49 erythromycin base AdvReac Unknown unknown Verified 10/29/22 17:49 valsartan AdvReac FATIGUE Verified 10/29/22 17:49 Consultations 10/29/22 18:03 ED Decision to Admit Stat 10/29/22 19:45 Consult Cardiology Routine Consult Manager Sap Routine Procedures Performed Operation Date: 10/29/22 18:00 Actual Procedures p Cineradiography w/Routine Exam - Delonte Gordon MD p Aspiration/PCI w/JESSENIA for Stemi - Delonte Gordon MD p Right Heart Cath Only - Delonte Gordon MD Ordered Studies 10/29/22 17:55 CL Cath Imgs for PACS use only Stat Hospital Course (1) Acute ST elevation myocardial infarction (STEMI): (2) DM II (diabetes mellitus, type II), controlled: (3) Benign essential HTN: (4) Obesity (BMI 30.0-34.9): (5) HLD (hyperlipidemia): Plan Patient is a 62-year-old female who presented to the ED with severe chest pain. Heart alert was called in the ED. Patient underwent RCA stent placement. She was also found to have severe multivessel disease. Following the stent placement, patient had hypoxic respiratory failure requiring BiPAP. She was admitted to ICU. General cardiology was consulted for comanagement. Patient was started on IV diuretics Echocardiogram was done which showed severely reduced EF of 15 to 20%. Patient continues to show signs of improvement throughout the hospitalization. She was weaned off of BiPAP; was in room air at discharge. She was placed on DAPT with aspirin and Brilinta as per cardiology recommendation. She was also started on Entresto, Aldactone and Toprol. She was also started on low-dose rosuvastatin and Zetia. Propranolol and losartan was stopped. Patient to follow-up with PCP and cardiology as outpatient. Please note the above document was generated using voice recognition software. It may contain grammatical, syntax or spelling errors. Any formal questions or concerns about the content, text or information contained within the body of this dictation should be directly addressed to the provider for clarification Total Time Total Time Spent Total Time Spent (In Minutes): 45 Total Time Includes: Examination of the Patient, Discharge Planning, Medication Reconciliation, Communication With Other Providers and Other Discharge Plan Discharge Items Patient Disposition: Home - Self-Care Reason For Visit: STEMI Discharge Diagnosis: Inferior wall STEMI status post JESSENIA to RCA Activity: Resume your previous activity Non-emergency contact: Primary Care Provider Call non-emergency contact if: you have any medication questions and your symptoms worsen Follow-up/Referrals: Jessica Long PA-C [Physician Jewelry Dipper] - (The Cardiology office will call you with a follow up appointment.) Cristofer Correa MD [Outside Practitioners] - (Date & Time 11/07/2022 11:00 AM Provider Cristofer Correa MD Department Family Practice [facility] ) Diet: Regular Addtl Attending Provider Instructions: You were admitted to the hospital due to heart attack. Stent has been placed in one of your heart vessel (RCA). The following medication changes are recommended by the seismic interpreter: 1) continue to take aspirin 81 mg. You are started on Brilinta 90 mg twice daily. 2) Entresto 1 tablet twice daily 3) Ezetimibe 10 mg once a day and rosuvastatin 5 mg once a day 4) Lasix 40 mg once a day. 5) spironolactone 25 mg once a day Please stop taking losartan, Lasix 20 mg and propranolol. An appointment will be set up with your primary care doctor for sometime next week. You will also need to follow-up with cardiology and results as well. Pending Studies at Discharge: No Stand-Alone Forms: My [employer], Smoking Cessation Medications and DC Order Prescriptions: New furosemide 40 mg Tablet 40 mg PO QAM Qty: 30 0RF spironolactone 25 mg Tablet 25 mg PO QAM Qty: 30 0RF metoprolol succinate 25 mg Tablet Extended Release 24 Hr 12.5 mg PO QAM Qty: 30 0RF ezetimibe 10 mg Tablet 10 mg PO QAM Qty: 30 0RF rosuvastatin 5 mg Tablet 5 mg PO QPM Qty: 30 0RF Brilinta 90 mg Tablet 90 mg PO BID Qty: 60 0RF Entresto 24-26 mg Tablet 1 tab PO BID Qty: 60 0RF Continued cyclobenzaprine [Flexeril] 10 mg Tablet 10 mg PO HS PRN (Reason: MUSCLE SPASMS) sertraline 100 mg tablet 100 mg PO QAM aspirin 81 mg Tablet,Delayed Release (Dr/Ec) 81 mg PO DAILY triamcinolone acetonide 0.1 % Cream 1 applic TOPICAL BID PRN (Reason: RASH ON ARMS & LEGS--ITCHING) ascorbic acid (vitamin C) [Vitamin C] 500 mg Tablet 500 mg PO DAILY Claritin-D 12 Hour 5-120 mg Tablet Extended Release 12 Hr 1 tab PO QAM albuterol sulfate 90 mcg/actuation Hfa Aerosol Inhaler 2 puff INHALATION Q6H PRN (Reason: Cough) Levemir FlexPen 100 unit/mL (3 mL) Insulin Pen 12 unit SUBCUT HS cholecalciferol (vitamin D3) [Vitamin D3] 125 mcg (5,000 unit) Tablet 125 mcg PO DAILY Trulicity 4.5 mg/0.5 mL Pen Injector 4.5 mg SUBCUT WK Rx Instructions: SUNDAYS--PER PT "DID NOT TAKE THIS WEEK, DIDN'T FEEL GOOD". Discontinued propranolol 60 mg tablet 60 mg PO BID furosemide 20 mg tablet 20 mg PO QAM losartan 100 mg tablet 100 mg PO QAM Discharge Orders: Discharge Order (Routine); Ordered 11/01/22 Ordered By: Gavin Adkins/Other Patient Handouts: High Blood Sugar (Hyperglycemia), Managing Type 2 Diabetes, Diabetes: Meal Planning Admission Data Admit Date/Time: 10/29/22 19:44 Attending Provider: Gavin Junior Admit Provider: Delonte Gordon Primary Care Provider: Obinna Lopez Other Providers: Clay Romero ; Bossman Robertson ; Hemanth Rodas
== END 2022-11-01 14:52 | disposition home or self-care (01) | DRG 246 ==
LOC: ED 17:26 → CC 18:00 → 1E 18:00 → SUATTDRO 19:44 → 2S 11-01 06:51
PROC: CLB.CRH (2022-10-29 18:00)